=== PATIENT | female | born 1990 | race Caucasian/White ===

== ENCOUNTER 2024-06-12 09:24 | Emergency (ER) | payer OTHER, SELFPAY ==
--- NOTE | 2024-06-12 09:25 | ED.URI ---
HPI - URI/Sore Throat General Chief Complaint: Upper Respiratory Infection Stated Complaint: Cough Time Seen by Provider: 06/12/24 09:25 Source: patient Mode of arrival: ambulatory Limitations: no limitations History of Present Illness HPI Narrative: Patient is a 33 year old female that presents with 2 weeks of cough and congestion. Patient states she is having coughing fits and can't get the cough to stop. States the cough is getting worse and is keeping her up all night. Denies any fever, chills, n/v/d. Has taken Vero but nothing for the cough. Related Data Allergies Allergy/AdvReac Type Severity Reaction Status Date / Time No Known Allergies Allergy Verified 06/12/24 09:26 Review of Systems Review of Systems: All systems reviewed & are unremarkable except as noted in HPI and below Constitutional: Constitutional: Denies chills, Denies fatigue, Denies fever(s), Denies headache(s), Denies malaise and Denies weakness Eyes: Eyes: Denies blurry vision, Denies itchy eyes and Denies loss of vision ENT: Denies otalgia, Denies headache(s), Reports nasal congestion, Denies sinus pain and Denies sore throat Cardiovascular: Cardiovascular: Denies chest pain, Denies irregular heart rhythm and Denies dyspnea Respiratory: Respiratory: Reports cough and Denies dyspnea Gastrointestinal: Gastrointestinal: Denies abdominal pain, Denies diarrhea, Denies nausea and Denies vomiting Musculoskeletal: Musculoskeletal: Denies back pain, Denies myalgias and Denies arthralgias Integumentary/Breasts: Skin/Breast: Denies pruritus and Denies rash Neurologic: Denies headache(s), Denies loss of vision and Denies weakness Psychiatric: Psychiatric: Reports no additional psychiatric complaints Endocrine: Endocrine: Denies fatigue Allergic/Immunologic: Allergic/Immunologic: Denies itchy eyes PMFSH Comments At time of signature, agree with nursing past medical, surgical, social and family history. There is no relevant family history pertinent to the presenting complaint. Exam Const: General: cooperative, healthy appearing, comfortable, no acute distress and well nourished Nutritional Appearance: well nourished Orientation/consciousness: patient oriented x3 Limitations: no limitations HENMT: Head: normal to inspection, normocephalic and atraumatic Ears: hearing grossly normal bilaterally, external ears normal, TM's normal bilaterally, EAC's normal and no periauricular adenopathy Face/Nose/Sinus: Normal external nose present, Abnormal mucous membranes and turbinates present erythematous bilateral and diffuse, normal facial exam, sinuses nontender and face symmetric Face and sinus: normal facial exam, sinuses nontender and face symmetric Mouth: Yes Normal oral and palatal mucosa present, Yes lip normal, Yes tongue normal, Yes Normal salivary glands and ducts present, Yes oropharynx normal and Yes moist mucous membranes Teeth and gingiva: dentition normal Throat: posterior oropharynx normal, tonsils normal and uvula midline Eyes: General: appearance normal, both eyes and all related structures Alignment and Position: alignment normal and position normal Periorbital: periorbital findings normal Eyelids: eyelids normal Pupils: Equal, round and reactive pupils present Neck: Neck: normal visual inspection, full ROM, no lymphadenopathy and supple Chest: Chest palpation & inspection: normal inspection of the chest and normal palpation of entire chest wall Resp: Effort & Inspection: normal respiratory effort, able to speak in complete sentences and Actively coughing actively coughing Auscultation: no crackles, no rales, rhonchi throughout (mild) and no wheezes Cardio: Rate: regular rate Rhythm: regular rhythm Heart sounds: S1 normal heart sound present and S2 normal heart sound present GI: Inspection: normal to inspection Skin: General skin exam: normal color and no rashes or lesions noted Neuro: General: patient oriented x3 and moves all extremities Cranial nerves: Yes Equal, round and reactive pupils present Speech: normal speech Gait exam (Neuro): Normal gait present Extrem: General: normal to inspection, full ROM and no edema Psych: Appearance: grossly normal and well kempt Mental Status: mental status grossly normal Speech and movement: Normal speech and movement present Affect: normal affect Attitude: cooperative Thought process: Normal thought process present Course Course Emergency Course: Discharge instructions reviewed with patient, as well as provided in writing per nursing staff. The instructions also include specific and strict return/GO TO THE ER as well as f/u information. All questions have been answered, and the patient deny any further questions with discharge and discharge plan. Portions of this record may have been created with voice recognition software Level of Care: Express Care Visit Vital Signs Vital signs: Reviewed MDM - URI/Sore Throat MDM Narrative Medical decision making narrative: Pt well hydrated appearing, in no respiratory distress, hemodynamically stable. Recommend supportive care. The patient is stable at time of discharge the clinical impression was discussed and the patient was given the opportunity to ask questions, which were addressed as completely as possible given the information available at present. Anticipatory guidance and return to care precautions were discussed and the importance of primary care follow-up was stressed and encouraged. The patient voiced understanding of the plan, indications to return, and the need for follow-up. Exam findings show no acute concerns or changes Patient is appropriate for outpatient treatment and follow-up. Differential diagnosis considered: Jara virus, strep pharyngitis, allergic rhinitis, upper respiratory tract infection, sinusitis, rhinosinusitis, nasopharyngitis. viral pharyngitis, otitis media, otitis externa, otitis effusion, foreign body, cerumen impaction, viral syndrome, and influenza.? Discharge Plan Discharge Clinical Impression: Acute purulent bronchitis Patient Disposition: Home Condition: Stable Instructions: Acute Bronchitis (ED) Additional Instructions: Take antibiotic as prescribed. Take steroids in the morning with food. Use Tessalon Perles as needed for cough. You have been prescribed Doxycycline today.It may make your skin more sensitive to sunlight than normal. Make sure you wear sunscreen at all times when outside while on the medication. Other symptomatic treatments include: -Alternate Tylenol and Motrin per package directions for fever or pain: Tylenol 650-1000mg by mouth every 4-6 hours. Do not exceed 4000mg in 24 hours. Advil (Ibuprofen) 600 mg by mouth every 6 hours. Do not exceed 2400mg in 24 hours. 8 AM: Tylenol 11 AM: Ibuprofen 2 PM: Tylenol 5 PM: Ibuprofen 8 PM: Tylenol 11 PM: Ibuprofen 2 AM: Tylenol 5 AM: Ibuprofen -Antihistamine medication such as Benadryl at night and Zyrtec/Claritin/Vero during the day can help improve symptoms. -Use Flonase twice a day for 5 days then daily to help reduce the inflammation and dry up your sinuses. -You can also use Sudafed or Mucinex. Be sure to drink plenty of water with these medications at least 8 ounces with every dose and it is important to drink 8 to 10 glasses of water per day. Water is a natural decongestant -Eat and drink things that are easy to swallow, like tea or soup, or popsicles. -Oral rinses such as: Salt water gargles and/or may use topical anesthetic (eg. Chloraseptic spray) or lozenges to relieve dryness or throat pain). -Frequent hand washing or hand security flex officer is one of the best ways to prevent spread of infection. -Using a vaporizer or humidifier at night will also help thin secretions and help with coughing up phlegm. Call your Primary Care Doctor and make a follow-up appointment in 3 days. If your cough worsens, you develop a fever greater than 103, you develop shaking chills, a fast heartbeat, trouble breathing and/or feel you are are breathing much faster than usual, call your Primary Care Doctor or go to the ER. Patient Language: Ecuadorean Prescriptions: New prednisone 20 mg tablet 40 mg PO DAILY 5 Days Qty: 10 0RF doxycycline monohydrate 100 mg tablet 100 mg PO BID 7 Days Qty: 14 0RF benzonatate 100 mg capsule 100 mg PO BID PRN (Reason: cough) Qty: 14 0RF Follow-up/Referrals: Frank,Sharri [Other] - 3 Days Time of Disposition: 09:42
[2024-06-12 09:34] VITALS: BP 117/86; PULSE 95; RESP 17; TEMP 36.8; O2SAT 99
--- OUTSIDE RECORDS SUMMARY | 2024-06-12 16:06 | XMS_ITS ---
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 Considering SCIT., Coughtriggered by dust or when cleaning with 2 episodes of chest tightness. No interval episodes or albuterol use., Angioedema 3-4 times at age 9 or 10. Now reoccurring over the past two months. One interval episode in 03/2024. Two episodes in 2024. Now carries AIE., Rashes to neck, back and arms lasting for several days. Occurring every other month for years. No interval episodes., Concern for allergy to pistachio due to prior blood testing. Reports severe abdominal pain after pistachio ingestion in 2021. Continues avoidance. Skin testing positive with Immunocap showing IgE elevation at 0.12. Medications Medication SIG (Take, Route, Frequency, Duration) Notes Start Date End Date Status Nasal Washes N/A as directed intranasally Active Cetirizine HCl 10 MG 1 tablet Orally Onc e a day for 30 days Active Fluticasone Propionate 50 MCG/ACT 1 spray in each nostril Nasally Twice a day for 30 days Active Mupirocin 2 % 1 application Gps [employer] Data [employer]or ally Twice a day for 5 days Active Fexofenadine HCl 180 MG 1 tablet Orally Once a day for 30 days Active Albuterol Sulfate HFA 108 (90 Base) MCG/ACT 2 puffs as needed Inhalation every 4 hrs for 30 days Active Aleve-D Sinus & Cold 120-220 MG 1 tablet as needed Orally every 12 hrs Active AeroChamber MV - as directed for 30 days Any adult spacer Active Lo-Zumandimine 3-0.02 MG Oral for 84 Days Not-Taking EPINEPHrine 0.3 MG/0.3ML as directed Inj ection as needed for 30 days Active Social History Tobacco Use: Social History Observation Description Date Details (start date - stop date) Never Smoker NA - NA Tobacco Control (Standard) Question Answer Notes Tobacco use: Nonsmoker Problems Problem Type SNOMED Code ICD Code Onset Dates Problem Status W/U Status Risk Notes Problem Allergic rhinitis caused by animal hair and dander ([id number]) Allergic rhinitis due to animal (cat) (dog) hair and dander (J30.81) Active confirmed Vital Signs Blood pressure systolic 131 mm Hg 04/29/19 25 Blood pressure diastolic 85 mm Hg 025 Height 63 in 04/28/2024 Weight 139.6 lbs 04/28/2024 BMI 24.73 kg/m2 04/28/2024 Oximetry 100 % 04/28/2024 Encounters Encounter Location Date Provider Diagnosis [facility] [address] [address] 04/28/2024 Marielle Paez Allergic rhinitis du e to pollen J30.1 ; Allergic rhinitis due to animal (cat) (dog) hair and dander J30.81 ; Other allergic rhinitis J30.89 ; Other chronic allergic conjunctivitis H10.45 ; Chronic rhinitis J31.0 ; Cough, unspecified R05.9 ; Angioneurotic edema, initial encounter T78.3XXA ; Rash and other nonspecific skin eruption R21 ; Anaphylactic reaction due to tree nuts and seeds, initial encounter T78.05XA and Elevated blood-pressure reading, without diagnosis of hypertension R03.0 Assessments Encounter Date Diagnosis (ICD Code) Assessment Notes Treatment Notes Treatment Clinical Notes Section Notes 04/28/2024 Allergic rhinitis due to pollen (ICD-10 - J30.1) Caryl clearly suffers from atopic disease based upon our skin testing and clinical history. Accordingly, we have introduced a new, aggressive medication regimen, discussed nasal washes and allergy-specific avoidance measures. We also discussed adjunctive therapies including subcutaneous, specific allergen immunotherapy as relates to the treatment and prevention of atopic disease. She is currently considering the risks, benefits and alternatives to this care. Risks: bleeding, infection, allergic reaction, anaphylaxis; Benefits: reduced need for medications, improved symptoms, disease modification. Alternatives: watch/wait, change medication regimen, improve allergy avoidance measures. - Recommend against frequent use of Aleve decongestant. - Continue medications as listed above. - Patient is considering SCIT - recommend Zyrtec. Recommend triple premedication if undergoing rapid desensitization during Spring. She is holding off at this time due to insurance. - AIE to be carried at all times - see below. - Follow-up in 3-6 months for E&M 04/28/2024 Allergic rhinitis due to animal (cat) (dog) hair and dander (ICD-10 - J30.81) Follow allergen avoidance, meds and consider SCIT as an adjunctive treatment to current regimen 04/28/2024 Other allergic rhinitis (ICD-10 - J30.89) Follow allergen avoidance, meds and consider SCIT as an adjunctive treatment to current regimen 04/28/2024 Other chronic allergic conjunctivitis (ICD-10 - H10.45) Given ocular signs and symptoms I encouraged allergy avoidance measures and meds as above. If symptoms persist, consider adding additional medications including intraocular antihistamine/mast cell stabilizer, PRN and consider SCIT as an adjunctive measure 04/28/2024 Chronic rhinitis (ICD-10 - J31.0) Last visit, exam concerning for atrophic rhinitis. Today, exam WNL after mupirocin 2% BID x 5 days. -Encouraged Nasal rinses and AYR gel to enhance moisturization of nasal passages. -Recommend holding nasal sprays for any evidence of epistaxis. 04/28/2024 Cough, unspecified (ICD-10 - R05.9) Caryl reports occasional coughing, which she believes to be triggered specifically by cleaning. She also reports coughing attacks at times that cause chest tightness. She reports 2 episodes that caused intense chest tightness as she was coughing so hard, both times she was dust. The last episode was 2 weeks ago. She denies asthma diagnosis, inhaler usage, PNA diagnosis, frequent infections, hospitalization, intubations. She denies OCS use for lower airways. ACT 25 today. No interval cough or MCKENNA use. - Initial spirometry showed supernormal FVC, normal FEV1, FEV%. FVL shows variable inspiratory blunting, otherwise normal. Normal lung age. - Encouraged to use MCKENNA PRN every 4-6 hours for cough. No interval use. - Consider step-up to ICS versus ICS/LABA for MCKENNA use more than 2x per week. - Treat atopy as stated above. - Consider BD challege for persistent or worsening symptoms. 04/28/2024 Angioneurotic edema, initial encounter (ICD-10 - T78.3XXA) Historical angioedema, with upper lip swelling that occurs randomnly. Around age 9 or 10, mom reports upper lip swelling that happened 3-4 times, thought to be related to cinnamon. She now ingests cinnamon without issues. Wong reports one episode while in high-school as well. Approximately 2-3 months ago, symptoms of upper lip swelling started to reoccur at random. Symptoms start with tingling noted to upper lip, then upper lip becomes swollen shortly after. No pictures available. Denies associated hives. She does not treat with anything. Symptoms will resolve within 24 hours. She uses tylenol for pain. Previously using Aleve Cold & Sinus. She admits to 1 glass of wine nightly. Reports 2 episodes in 2024, last one in 03/2024. Notable itching prior to onset of swelling around 1:00pm, resovled by the next AM. - Discussed with Dr. Fry, presumably related to acute uticaria at this time. Can consider triple premedication versus watch and wait versus treating with additional antihistamines if symptoms arise. - Discussed with Crayl, will monitor for reoccurence and take additional Vero if symptoms reoccur. She is not interested in triple medication at this time as symptoms have only occured 2 times in 2024. - Initial laboratory workup notable for positive PRICE 1:40, repeat PRICE was WNL. C1 inhibiotr protein and functional WNL. C4 obtained to rule out HAE, WNL. CRP WNL. Repeat UA WNL. Prior MCHC mildly low, no other abnormalitiies on CBC. - Repeat labs all WNL. - Continue to carry AIE. - Encouraged to take pictures and journal for triggers. Pictures viewed today c/w angioedema. - Recommend avoiding NSAIDS, opioids and alcohol as these can exacerbate symptoms - unsure if she was taking NSAIDs in the setting of swelling. - Educational handout provided to patient at initial visit. - Follow-up in 3-4 months for E&M 04/28/2024 Rash and other nonspecific skin eruption (ICD-10 - R21) Intermittent rashes occuring every other month for the past year. Symptoms will occur to back of neck and down back and arms. Symptoms last for 2-3 days with no skin changes or associated-flaking . She denies associated itching nor burning. She denies dermatology evaluation. Current products consist of All Free and Clear laudry detergent, occasional Free and Clear dryer sheets, Biolage shampoo and conditioner, Norwex rag on for soap, Vanicream lotion. She reports hair dye every 8-9 weeks. No pictures available. No interval episodes. - History is concerning for contact dermatitis vs atopic dermatitis vs other. - Recommend changing products to dye-free, scent-free, paraben free. Suggested Vanicream line for all products in addition to All Free and Clear Laundry detergent. - Discussed journaling for triggers and taking pictures if rash reoccurs. - Consider change to PPD hair dye or avoiding hair dye in the interim. - She is interested in patch testing - wants to wait until weather is cooler. 04/28/2024 Anaphylactic reaction due to tree nuts and seeds, initial encounter (ICD-10 - T78.05XA) She reports prior bloodwork, confirming pistachio allergy. She has ingested almonds and walnuts regularly. She attempted pistachio in past that resulted in severe abdominal pain within 30 minutes, last time was approximately 2 years ago. She has avoided since. She has ingested almonds and walnuts without issue. - SPT at initial visit mildly positive to [place] Nut, Cashew Nut, Pistachio, Hazelnut, and Pecan. ImmunoCaps ordered showing IgE elevations to pistachio (0.12) and cashew (0.12). - Encouraged to avoid all tree nuts (except almond and walnut) at this time. - Directed patient to Food Allergy Research & Education (FARE) website for additional resources at follow-up. - Discussed reading food labels, cross-contaminatio n, and use/indications for Epinephrine. - FAP to be formulated at follow-up. - Patient may need paperwork for her current job due to evidence of [place] allergy, ARC and ongoing angioedema completed. Does not have it with her at this time. Instructed to email paperwork to office. - Continue to carry AIE at all times. 04/28/2024 Elevated blood-pressure reading, without diagnosis of hypertension (ICD-10 - R03.0) BP elevated today without symptoms of urgency or emergency. 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 Accordingly, we have introduced a new, aggressive medication regimen, discussed nasal washes and allergy-specific avoidance measures. We also discussed adjunctive therapies including subcutaneous, specific allergen immunotherapy as relates to the treatment and prevention of atopic disease. She is currently considering the risks, benefits and alternatives to this care. Risks: bleeding, infection, allergic reaction, anaphylaxis; Benefits: reduced need for medications, improved symptoms, disease modification. Alternatives: watch/wait, change medication regimen, improve allergy avoidance measures. - Recommend against frequent use of Aleve decongestant. - Continue medications as listed above. - Patient is considering SCIT - recommend Zyrtec. Recommend triple premedication if undergoing rapid desensitization during Spring. She is holding off at this time due to insurance. - AIE to be carried at all times - see below. - Follow-up in 3-6 months for E&M Allergic rhinitis due to ani mal (cat) (dog) hair and dander Follow allergen avoidance, meds and consider SCIT as an adjunctive treatment to current regimen Other allergic rhinitis Follow allergen avoidance, meds and consider SCIT as an adjunctive treatment to current regimen Other chronic allergic conjunctivitis Gi shimon ocular signs and symptoms I encouraged allergy avoidance measures and meds as above. If symptoms persist, consider adding additional medications including intraocular antihistamine/mast cell stabilizer, PRN and consider SCIT as an adjunctive measure Chronic rhinitis Last visit, exam concerning for atrophic rhinitis. Today, exam WNL after mupirocin 2% BID x 5 days. -Encouraged Nasal rinses and AYR gel to enhance moisturization of nasal passages. -Recommend holding nasal sprays for any evidence of epistaxis. Cough, unspecified Caryl reports occasional coughing, which she believes to be triggered specifically by cleaning. She also reports coughing attacks at times that cause chest tightness. She reports 2 episodes that caused intense chest tightness as she was coughing so hard, both times she was dust. The last episode was 2 weeks ago. She denies asthma diagnosis, inhaler usage, PNA diagnosis, frequent infections, hospitalization, intubations. She denies OCS use for lower airways. ACT 25 today. No interval cough or MCKENNA use. - Initial spirometry showed supernormal FVC, normal FEV1, FEV%. FVL shows variable inspiratory blunting, otherwise normal. Normal lung age. - Encouraged to use MCKENNA PRN every 4-6 hours for cough. No interval use. - Consider step-up to ICS versus ICS/LABA for MCKENNA use more than 2x per week. - Treat atopy as stated above. - Consider BD challege for persistent or worsening symptoms. Angioneurotic edema, initial encounter Historical angioedema, with upper lip swelling that occurs randomnly. Around age 9 or 10, mom reports upper lip swelling that happened 3-4 times, thought to be related to cinnamon. She now ingests cinnamon without issues. Wong reports one episode while in high-school as well. Approximately 2-3 months ago, symptoms of upper lip swelling started to reoccur at random. Symptoms start with tingling noted to upper lip, then upper lip becomes swollen shortly after. No pictures available. Denies associated hives. She does not treat with anything. Symptoms will resolve within 24 hours. She uses tylenol for pain. Previously using Aleve Cold & Sinus. She admits to 1 glass of wine nightly. Reports 2 episodes in 2024, last one in 03/2024. Notable itching prior to onset of swelling around 1:00pm, resovled by the next AM. - Discussed with Dr. Fry, presumably related to acute uticaria at this time. Can consider triple premedication versus watch and wait versus treating with additional antihistamines if symptoms arise. - Discussed with Caryl, will monitor for reoccurence and take additional Vero if symptoms reoccur. She is not interested in triple medication at this time as symptoms have only occured 2 times in 2024. - Initial laboratory workup notable for positive PRICE 1:40, repeat PRICE was WNL. C1 inhibiotr protein and functional WNL. C4 obtained to rule out HAE, WNL. CRP WNL. Repeat UA WNL. Prior MCHC mildly low, no other abnormalitiies on CBC. - Repeat labs all WNL. - Continue to carry AIE. - Encouraged to take pictures and journal for triggers. Pictures viewed today c/w angioedema. - Recommend avoiding NSAIDS, opioids and alcohol as these can exacerbate symptoms - unsure if she was taking NSAIDs in the setting of swelling. - Educational handout provided to patient at initial visit. - Follow-up in 3-4 months for E&M Rash and other nonspecific skin eruption Intermittent rashes occuring every other month for the past year. Symptoms will occur to back of neck and down back and arms. Symptoms last for 2-3 days with no skin changes or associated-flaking. She denies associated itching nor burning. She denies dermatology evaluation. Current products consist of All Free and Clear laudry detergent, occasional Free and Clear dryer sheets, Biolage shampoo and conditioner, Norwex rag on for soap, Vanicream lotion. She reports hair dye every 8-9 weeks. No pictures available. No interval episodes. - History is concerning for contact dermatitis vs atopic dermatitis vs other. - Recommend changing products to dye-free, scent-free, paraben free. Suggested Vanicream line for all products in addition to All Free and Clear Laundry detergent. - Discussed journaling for triggers and taking pictures if rash reoccurs. - Consider change to PPD hair dye or avoiding hair dye in the interim. - She is interested in patch testing - wants to wait until weather is cooler. Anaphylactic reaction due to tree nuts and seeds, initial encounter She reports prior bloodwork, confirming pistachio allergy. She has ingested almonds and walnuts regularly. She attempted pistachio in past that resulted in severe abdominal pain within 30 minutes, last time was approximately 2 years ago. She has avoided since. She has ingested almonds and walnuts without issue. - SPT at initial visit mildly positive to [place] Nut, Cashew Nut, Pistachio, Hazelnut, and Pecan. ImmunoCaps ordered showing IgE elevations to pistachio (0.12) and cashew (0.12). - Encouraged to avoid all tree nuts (except almond and walnut) at this time. - Directed patient to Food Allergy Research & Education (FARE) website for additional resources at follow-up. - Discussed reading food labels, cross-contamination, and use/indications for Epinephrine. - FAP to be formulated at follow-up. - Patient may need paperwork for her current job due to evidence of [place] allergy, ARC and ongoing angioedema completed. Does not have it with her at this time. Instructed to email paperwork to office. - Continue to carry AIE at all times. Elevated blood-pressure read ing, without diagnosis of hypertension BP elevated today without symptoms of urgency or emergency. Continue serial checks and follow-up with PCP Next Appt Details Follow Up: 3 Months, Reason: Evaluation and Management Progress Notes * TISHA IsidraOB:1990 (33 yo F)Acc No.[id number]:04/28/2024 Progress Notes Patient: Caryl SULLIVAN Provider: SANDRA Das :1990 A ge:33 Y S ex:Female Date:04/28/2024 Address:[address], [place], [id number] Subjective: * Chief Complaints: * A RC - Using Zyrtec nightly with associated drowsiness and Flonase 2x week. Considering SCIT.Cough triggered by dust or when cleaning with 2 episodes of chest tightness. No interval episodes or albuterol use.Angioedema 3-4 times at age 9 or 10. Now reoccurring over the past two months. One interval episode in 03/2024. Two episodes in 2024. Now carries AIE.Rashes to neck, back and arms lasting for several days. Occurring every other month for years. No interval episodes.Concern for allergy to pistachio due to prior blood testing. Reports severe abdominal pain after pistachio ingestion in 2021. Continues avoidance. Skin testing positive with Immunocap showing IgE elevation at 0.12. * HPI: * Introduction: I had the pleasure of seeing Ariadna Cuello, a 33 year-old WF, with a past medical history of ARC, IBS here today for interval evaluation and management. She is alone for today's visit. Caryl reports lifelong seasonal allergies lifelong. Symptoms consist of itchy/watery eyes, rhinorrhea, nasal congestion and sneezing.Descriptors of her upper airways symptoms are outlined below. Symptoms were previously worse in Spring, now reports year- round symptoms. Prior treatment consisted of Aleve Cold and Sinus 3-4 times per week. She has attempted Vero, Zyrtec, Claritin, Flonase (which does help occasionally). Aeroallergen skin testing was completed at first visit, and was positive to multiple seasonal and perennial allergens. She was started on Zyrtec, but reported drowsiness so switched to Vero. Last visit, reported b loody drainage with nose blwoing. Concerns for atrophic rhintiis, treated with muprocin with subjective improvement. Also started nasal washes with improvement in congestion. She reports prior bloodwork confirming pistachio allergy. She has ingested almonds and walnuts regularly. She attempted pistachio in past that resulted in severe abdominal pain within 30 minutes, last time was approximately 2 years ago. Skin testing at initial visit positive to several tree nuts with ImmunoCaps showing IgE elevations to pistachio (0.12) and cashew (0.12). She continues avoidance and carries AIE. Caryl reported occasional coughing, which she believes to be triggered specifically by cleaning. She also reports coughing attacks at times that cause chest tightness. She reports 2 episodes that caused intense chest tightness as she was coughing so hard, both times she was dust. The last episode was 2 weeks ago.She denies asthma diagnosis, inhaler usage, PNA diagnosis, frequent infections, hospitalization, intubations. She denies OCS use for lower airways. She was given albuterol at initial visit with no interval episode of cough or MCKENNA use. She reports intermittent rashes that occur every other month for the past year. Symptoms will occur to back of neck and down back and arms. Symptoms last for 2- 3 days with no skin changes or associated-flaking. She denies dermatology evaluation. Current products consist of All Free and Clear laudry detergent, occasional Free and Clear dryer sheets, Biolage shampoo and conditioner, Norwex rag on for soap, Vanicream lotion. She reports hair dye every 8-9 weeks. She reports interval rashes to face and is intersetd in patch testing when weather is cooler. Caryl reports historical angioedema, with upper lip swelling that occurs randomnly. Around age 9 or 10, mom reports upper lip swelling that happened 3-4 times, thought to be related to cinnamon. She now ingests cinnamon without issues. Wong reports one episode while in high-school as well. Approximately 2-3 months ago, symptoms of upper lip swelling started to reoccur at random.Symptoms start with tingling noted to upper lip, then upper lip becomes swollen shortly after.No pictures available. Denies associated hives. She does not treat with anything. Symptoms will resolve within 24 hours. She uses tylenol for pain. Previously using Aleve-D 4 times, but has since decreased use. S he drinks 1 glass of wine nightly. Last visit, reported episode of burning, but no associated swelling. Today, reports 2 interval episodes in 2024, last in 03/2024. First noticed itching sensation to lower lip, with visible swelling within 1 hour. Did not take any additional medication. She is unsure if NSAIDs were in system at time of swelling. Swelling resolved by next AM. Carries AIE at all times. She denies a history of physician-diagnosed allergic rhinitis, recurrent sinusitis or otitis media, recurrent pneumonia, asthma/RAD, eczema, food allergies, urticaria/angioedema, medication allergies, contact dermatitis, latex allergy, eosinophilic esophagitis or stinging insect hypersensitivity. Today, she reports no fevers, chills, night sweats or other constitutional symptoms. * ROS: A LLERGY: runny nose Y es. s cratchy throat Y es. i tchy eyes Y es. s inus congestion Y es. P ositive p er the HPI and history, otherwise unremarkable. S PECIAL SENSES: Positve for n one. c ataracts N o. g laucoma?No. l oss of hearing N o. i tching in ears Y es. r inging in ears N o.?loss of balance N o. l oss of smell N o. d ry eyes Y es. e xcessive tearing N o. i tching eyes Y es. l oss of taste N o. c onjunctivitis N o.?ear infections N o. C ONSTITUTIONAL: weight gain N o. l oss of appetite N o. f ever?No. w eakness N o. w eight loss N o. f atigue Y es. n ight sweats?No. P ositive for n one. E NT: cold N o. c ough Y es. e pistaxis N o. h earing loss N o. c hange in voice N o. s ore throat N o. r inging in ears?No. s inus pain N o. P ositive p er the HPI and history, otherwise unremarkable. R ESPIRATORY: shortness of breath N o. c hest pain Y es. c hest congestion Y es. c ough Y es. P ositive p er the HPI and history, otherwise unremakable. O PHTHALMOLOGY: diminished vision Y es. e ye irritation Y es. d rainage from eyes N o. b lurring of vision N o. s easonal eye sx Y es. P ositive for p er the HPI and history, otherwise unremarkable. i tching Y es. d ischarge N o. w atering N o. s welling of the eyelids N o. r edness Y es. ? E NDOCRINOLOGY: fatigue Y es. p olydipsia N o. p olyuria N o. w eight loss N o. s leep disturbance N o. c old intolerance N o. h eat intolerance N o. d iabetes N o. P ositive for n one. C ARDIOLOGY: chest pain Y es. p alpitations N o. l eg edema?No. d izziness Y es. s hortness of breath N o. P ositive for n one.? G ASTROENTEROLOGY: dysphagia N o. a bdominal pain Y es. n ausea?Yes. v omiting N o. c onstipation N o. d iarrhea Y es. b lood in stool Y es. h emorrhoids N o. P ositive for n one. U ROLOGY: difficulty urinating N o. b lood in urine N o. f requent urination N o. u rinary incontinence N o. r ecurrent UTI N o. P ositive for n one. D ERMATOLOGY: rash Y es. m ole N o. l umps N o. d ry or sensitive skin Y es. h khadar (urticaria) N o. a cne N o. s kin cancer N o. P ositive for p er the HPI and history, otherwise unremakable. N EUROLOGY: headache Y es. t ingling numbness N o. s eizures N o. i nsomnia N o. m marilu loss N o. d izziness Y es. g ait abnormality N o. P ositive for n one. H EMATOLOGY/LYMPH: Positive for n one. M USCULOSKELETAL: leg cramps Y es. c arpal tunnel Y es. P ositive for n one. P SYCHOLOGY: high stress level N o. d epression N o. s leep disturbances N o. s uicidal ideation N o. e ating disorder N o. m ental or physical abuse N o. a nxiety N o. P ositive for n one. F EMALE REPRODUCTIVE: heavy periods N o. h ot flashes N o. a bnormal vaginal discharge N o. s exually active Y es. i nfertility N o. f requent yeat infections N o. p elvic pain N o. b reast pain N o. n ipple discharge No. A re you ? N o. A re you planning on a future pregancy? N o. ? A ll other review of systems per the HPI and history, otherwise unremarkable. * Medical History: * Surgical History: C ubital tunnel 11/21/2023 * Hospitalization/Major Diagno stic Procedure: D enies Past Hospitalization * Family History: F ather: Yes. M other: Yes. P aternal Grand Father: Yes. P aternal Grand Mother: Yes. M aternal Grand Father: Yes. M aternal Grand Mother: Yes. S iblings: Yes. Ariadna go: Yes. dad- seizures. * Social History: M arital Status What is your marital status? m arried A lcohol Screening Do you ever drink alcoholic beverages? Y es Frequency? W eekly S moking Are you a : n ever smoker R ecreational drug use Have you ever used recreational drugs? N o D etails on consumption of certain products? Do you regularly consume products with aspartame; Equal or NutraSweet? N o Do you regularly consume products with artificial coloring??Yes E xercise What kind(s) of exercise do you perform regularly? w alking,age-appropriate participation in physical activites How often do you perform this exercise? d aily A re any of the following personal care products containing fragrance, dye or preservatives used regularly? Shampoo: Y es Conditioner: Y es Soap: N o Laundry Detergent: N o Deodorant: Y es Perfume, cologne, after shave: Y es Hair coloring dyes or rinses: Y es O ccupation Have you had any job with high exposure to fumes, chemicals, dust or other noxious substances? N o Are you currently a student? N o E nvironmental History Living environment: p rivate home,with pets Where is the home located? [place] Age of home: 5 How long have you lived there? 0 -1 years How many people live in the home? 4 H ome description Basement: Y es Any water damage in basement? N o Smokers in the home? N o Smokers outside the home? N o Air Conditioning? Y es Central Air? Y es Forced air heating? Y es Gas or electric? e lectric Fireplace? Y es Used how often? w inter months only Wood burning stove? N o Do you vacuum the home? Y es Air purification systems? Y es Is it a HEPA (high-efficiency particulate air filter)? Y es Pillow and mattress dust-proof encasings? N o Do you use a humidifier? N o Do you own any pets? Y es What kind(s)? (click all that apply) d og Where do your pets sleep? g arage Fabric softeners used? N o Plants in the home? N o Is there carpeting in your bedroom? N o Do you have [id number] carpeting? N o What is the age of your mattress (years)? 3 What material(s) are used to manufacture your bedding and pillow? o ther What is the age of your pillow (years)? 1 What material are your bedding items made of? n atural fiber (e.g. cotton) Do you sleep with quilts or blankets or a duvet? Y es What material? n atural fiber (e.g. cotton) How many dogs? 1 T obacco Control (Standard) Tobacco use: N onsmoker * Medications: T akingAlbuterol Sulfate HFA 108 (90 Base) MCG/ACT Aerosol Solution 2 puffs as needed Inhalation every 4 hrs AeroChamber MV - Miscellaneous as directed Any adult spacerEPINEPHrine 0.3 MG/0.3ML Solution Auto-injector as directed Injection as needed Cetirizine HCl 10 MG Tablet 1 tablet Orally Once a day Fluticasone Propionate 50 MCG/ACT Suspension 1 spray in each nostril Nasally Twice a day Aleve-D Sinus & Cold 120-220 MG Tablet Extended Release 12 Hour 1 tablet as needed Orally every 12 hrs Mupirocin 2 % Ointment 1 application Externally Twice a day Nasal Washes N/A 1 quart of sterilized tap water or distilled water, 1 tsp NaCl, 1 pinch of baking soda as directed intranasally Taking Albuterol Sulfate HFA 108 (90 Base) MCG/ACT Aerosol Solution 2 puffs as needed Inhalation every 4 hrs Taking AeroChamber MV - Miscellaneous as directed Any adult spacerTaking EPINEPHrine 0.3 MG/0.3ML Solution Auto-injector as directed Injection as needed Taking Cetirizine HCl 10 MG Tablet 1 tablet Orally Once a day Taking Fluticasone Propionate 50 MCG/ACT Suspension 1 spray in each nostril Nasally Twice a day Taking Aleve-D Sinus & Cold 120-220 MG Tablet Extended Release 12 Hour 1 tablet as needed Orally every 12 hrs Taking Mupirocin 2 % Ointment 1 application Externally Twice a day Taking Nasal Washes N/A 1 quart of sterilized tap water or distilled water, 1 tsp NaCl, 1 pinch of baking soda as directed intranasally Not-Taking/PRNLo-Zumandimine 3-0.02 MG Tablet Oral Fexofenadine HCl 180 MG Tablet 1 tablet Orally Once a day Medication List reviewed and reconciled with the patientNot-Taking/PRN Lo-Zumandimine 3-0.02 MG Tablet Oral Not- Taking/PRN Fexofenadine HCl 180 MG Tablet 1 tablet Orally Once a day Medication List reviewed and reconciled with the patient * Allergies: N .K.D.A.no[Allergies Verified] Objective: * Vitals: B P:131/85mm Hg, HR:82/min, Pulse Oximetry:100%, ACT:25, Ht: 63 in, Wt: 139.6 lbs, BMI:24.73Index. * Examination: G eneral examination: General appearance: p leasant, well-developed, well-nourished, in no apparent distress, speaking in full sentences. HEENT: c onjunctiva are normal bilaterally, TMs without evidence of acute infection, turbinates 2+ swollen and pale inferiorly bilaterally, clear rhinorrhea is present, no polyps noted, no septal perforation, posterior oropharynx is clear without exudates, erythema on pharyngeal wall, no exudates, no tongue swelling, and uvula is midline. Oral cavity: n ormal, no lesions. Breasts : n ot performed. Heart: R RR, S1-S2, no murmurs, no rubs, no gallops. Lungs: c lear to auscultation in all lung westfall, no wheezes, no crackles, no rhonchi. Neurologic exam: u nremarkable. Skin: n ormal, no visible rash, dermatographism, urticaria, angioedema. Back: n ormal. Extremities: n ormal ROM, no clubbing, no cyanosis, no edema. Genitalia: n ot performed. Assessment: * Assessment: 1. A llergic rhinitis due to pollen - J30.1 (Primary) 2 . A llergic rhinitis due to animal (cat) (dog) hair and dander - J30.81 3 . O ther allergic rhinitis - J30.89 4 . O ther chronic allergic conjunctivitis - H10.45 5 . C hronic rhinitis - J31.0 6 . C ough, unspecified - R05.9 ?7. A ngioneurotic edema, initial encounter - T78.3XXA 8 . R gabriela and other nonspecific skin eruption - R21 9 . A naphylactic reaction due to tree nuts and seeds, initial encounter - T78.05XA 1 0. E levated blood-pressure reading, without diagnosis of hypertension - R03.0 Plan: * Treatment: 2. A llergic rhinitis due to animal (cat) (dog) hair and dander Notes: Follow allergen avoidance, meds and consider SCIT as an adjunctive treatment to current regimen 3. O ther allergic rhinitis Notes: Follow allergen avoidance, meds and consider SCIT as an adjunctive treatment to current regimen 4. O ther chronic allergic conjunctivitis Notes: Given ocular signs and symptoms I encouraged allergy avoidance measures and meds as above. If symptoms persist, consider adding additional medications including intraocular antihistamine/mast cell stabilizer, PRN and consider SCIT as an adjunctive measure 5. C hronic rhinitis Hold Mupirocin Ointment, 2 %, 1 application, Externally, Twice a day, 5 days, 22 Gram, Refills 0.? Notes: Last visit, exam concerning for atrophic rhinitis. Today, exam WNL after mupirocin 2% BID x 5 days. -Encouraged Nasal rinses and AYR gel to enhance moisturization of nasal passages. -Recommend holding nasal sprays for any evidence of epistaxis. 6. C ough, unspecified Continue Albuterol Sulfate HFA Aerosol Solution, 108 (90 Base) MCG/ACT, 2 puffs as needed, Inhalation, every 4 hrs, 30 days, 1, Refills 0; C ontinue AeroChamber MV Miscellaneous, -, as directed Any adult spacer, 30 days, 1, Refills 11. Notes: Caryl reports occasional coughing, which she believes to be triggered specifically by cleaning. She also reports coughing attacks at times that cause chest tightness. She reports 2 episodes that caused intense chest tightness as she was coughing so hard, both times she was dust. The last episode was 2 weeks ago. She denies asthma diagnosis, inhaler usage, PNA diagnosis, frequent infections, hospitalization, intubations. She denies OCS use for lower airways. ACT 25 today. No interval cough or MCKENNA use. - Initial spirometry showed supernormal FVC, normal FEV1, FEV%. FVL shows variable inspiratory blunting, otherwise normal. Normal lung age. - Encouraged to use MCKENNA PRN every 4-6 hours for cough. No interval use. - Consider step-up to ICS versus ICS/LABA for MCKENNA use more than 2x per week. - Treat atopy as stated above. - Consider BD challege for persistent or worsening symptoms. 7. A ngioneurotic edema, initial encounter Continue EPINEPHrine Solution Auto-injector, 0.3 MG/0.3ML, as directed, Injection, as needed, 30 days, 1, Refills 0. Notes: Historical angioedema, with upper lip swelling that occurs randomnly. Around age 9 or 10, mom reports upper lip swelling that happened 3-4 times, thought to be related to cinnamon. She now ingests cinnamon without issues. Wong reports one episode while in high-school as well. Approximately 2-3 months ago, symptoms of upper lip swelling started to reoccur at random. Symptoms start with tingling noted to upper lip, then upper lip becomes swollen shortly after. No pictures available. Denies associated hives. She does not treat with anything. Symptoms will resolve within 24 hours. She uses tylenol for pain. Previously using Aleve Cold & Sinus. She admits to 1 glass of wine nightly. Reports 2 episodes in 2024, last one in 03/2024. Notable itching prior to onset of swelling around 1:00pm, resovled by the next AM. - Discussed with Dr. Fry, presumably related to acute uticaria at this time. Can consider triple premedication versus watch and wait versus treating with additional antihistamines if symptoms arise. - Discussed with Caryl, will monitor for reoccurence and take additional Vero if symptoms reoccur. She is not interested in triple medication at this time as symptoms have only occured 2 times in 2024. - Initial laboratory workup notable for positive PRICE 1:40, repeat PRICE was WNL. C1 inhibiotr protein and functional WNL. C4 obtained to rule out HAE, WNL. CRP WNL. Repeat UA WNL. Prior MCHC mildly low, no other abnormalitiies on CBC. - Repeat labs all WNL. - Continue to carry AIE. - Encouraged to take pictures and journal for triggers. Pictures viewed today c/w angioedema. - Recommend avoiding NSAIDS, opioids and alcohol as these can exacerbate symptoms - unsure if she was taking NSAIDs in the setting of swelling. - Educational handout provided to patient at initial visit. - Follow-up in 3-4 months for E&M 8. R gabriela and other nonspecific skin eruption Notes: Intermittent rashes occuring every other month for the past year. Symptoms will occur to back of neck and down back and arms. Symptoms last for 2-3 days with no skin changes or associated-flaking. She denies associated itching nor burning. She denies dermatology evaluation. Current products consist of All Free and Clear laudry detergent, occasional Free and Clear dryer sheets, Biolage shampoo and conditioner, Norwex rag on for soap, Vanicream lotion. She reports hair dye every 8-9 weeks. No pictures available. No interval episodes. - Historyis concerning for contact dermatitis vs atopic dermatitis vs other. - Recommend changing products to dye-free,scent-free, paraben free. Suggested Vanicream line for all products in additionto All Free and Clear Laundry detergent. - Discussed journaling for triggers and taking pictures if rash reoccurs. - Consider change to PPD hair dye or avoiding hair dye in the interim. - She is interested in patch testing - wants to wait until weather is cooler. 9. A naphylactic reaction due to tree nuts and seeds, initial encounter Notes: She reports prior bloodwork, confirming pistachio allergy. She has ingested almonds and walnuts regularly. She attempted pistachio in past that resulted in severe abdominal pain within 30 minutes, last time was approximately 2 years ago. She has avoided since. She has ingested almonds and walnuts without issue. - SPT at initial visit mildly positive to [place] Nut, Cashew Nut, Pistachio, Hazelnut, and Pecan. ImmunoCaps ordered showing IgE elevations to pistachio (0.12) and cashew (0.12). - Encouraged to avoid all tree nuts (except almond and walnut) at this time. - Directed patient to Food Allergy Research &Education (FARE) website for additional resources at follow-up. - Discussed reading foodlabels, cross-contamination, and use/indications for Epinephrine. - FAP to be formulated at follow-up. - Patient may need paperwork for her current job due to evidence of [place] allergy, ARC and ongoing angioedema completed. Does not have it with her at this time. Instructed to email paperwork to office. - Continue to carry AIE at all times. 10. E levated blood-pressure reading, without diagnosis of hypertension Notes: BP elevated today without symptoms of urgency or emergency. Continue serial checks and follow-up with PCP * Procedure Codes: 9 6160 PT-FOCUSED HLTH RISK [id number] DOC MEDS VERIFIED W/PT OR [id number] Marielle Paez - Incident-to * Preventive Medicine: Counseling: D iet C ontinue food avoidance: tree nuts (except almond and walnut). E xercise C ontinue activity as usual, Consider MCKENNA use PRN, prior to exercise as per the asthma action plan. M edication instruction: W atch for side effects of prescribed medications, Nasal steroid/antihistamine instruction: avoid septum, Injectable epinephrine education and instruction w/ discussion of signs and symptoms of anaphylaxis and reasons to seek urgent or emergent care, Use prescribed inhaler(s) with spacer. If taking a inhaled corticorsteroid rinse out mouth after use and brush teeth. Oral hygiene reviewed at length., Use 2 puffs of MCKENNA with spacer prior to exercise and environmental exposures known to cause wheezing. E ducation: G ENERAL EDUCATION: Our staff spent an additional 30 minutes in direct contact with the patient educating them on their current diagnoses and proper treatment and prevention of symptoms and the proper use of medications, Avoid opioid-containing analgesics, Avoid excessive alcohol use, Avoid NSAIDs (non-steroidal anti-inflammatories) - list provided, SKIN CARE EDUCATION:, Skin care regimen reviewed with patient, Avoid fragrances, dyes, preservatives in personal care products, Patch testing education was printed and reviewed with the patient. E ducation 2: A RC EDUCATION: Our staff discussed the appropriate allergen avoidance measures and medication utilization including upper airway hygiene with daily nasal washes given the patient's clinical status and diagnoses. SCIT EDUCATION: Discussed allergy immunotherapy including the relative risks, benefits and alternatives to this treatment as an adjunctive measure to current therapy, Allergy Immunotherapy: Risks: bleeding, infection, allergic reaction, anaphylaxis = severe allergic reaction that can cause ; Benefits: reduced need for medications, improved symptoms, disease modification. Alternatives: watch/wait, change medication regimen, improve allergy avoidance measures, Our staff discussed the warning signs of anaphylaxis and the indications to use self-injectable epinephrine and seek urgent or emergent care, FOOD ALLERGY EDUCATION:, Our staff discussed the warning signs of anaphylaxis and the indications to use self-injectable epinephrine and seek urgent or emergent care, Injectable epinephrine education and instruction w/ discussion of signs and symptoms of anaphylaxis and reasons to seek urgent or emergent care, Able to return demonstration of self-injectable epinephrine. P atient education material sent to portal? Y es B P Management: PRE-HYPERTENSIVE FOLLOW-UP PLAN: F ollow-up 1 month REFERRAL TO ALTERNATIVE / PRIMARY CARE PROVIDER: Lisa beasley to general practitioner * Follow Up: 3 Months (Reason: Evaluation and Management) * Billing Information: * Visit Code: 21400 Office Visit, Est Pt., Level 4. Modifiers: 25 * Procedure Codes: 61127 PT-FOCUSED HLTH RISK ASSMT. G8427 DOC MEDS VERIFIED W/[place]. [address] Marielle Paez - Incident-to. * Sign off status: Completed true * Provider: SANDRA Das Date: 0 04/28/2024 Generated for Caterina cardona/Allan/Luisitting on: 0 06/12/2024 04:06 PM CDT History and Physical Notes * HPI (History of Present Illness) Category Sub-Category Detail Notes Category Not es *Introduction I had the pleasure o f seeing Caryl Cuello, a 33 year-old WF, with a past medical history of ARC, IBS here today for interval evaluation and management. She is alone for today's visit. Caryl reports lifelong seasonal allergies lifelong. Symptoms consist of itchy/watery eyes, rhinorrhea, nasal congestion and sneezing.Descriptors of her upper airways symptoms are outlined below. Symptoms were previously worse in Spring, now reports year-round symptoms. Prior treatment consisted of Aleve Cold and Sinus 3-4 times per week. She has attempted Vero, Zyrtec, Claritin, Flonase (which does help occasionally). Aeroallergen skin testing was completed at first visit, and was positive to multiple seasonal and perennial allergens. She was started on Zyrtec, but reported drowsiness so switched to Vero. Last visit, reported bloody drainage with nose blwoing. Concerns for atrophic rhintiis, treated with muprocin with subjective improvement. Also started nasal washes with improvement in congestion. She reports prior bloodwork confirming pistachio allergy. She has ingested almonds and walnuts regularly. She attempted pistachio in past that resulted in severe abdominal pain within 30 minutes, last time was approximately 2 years ago. Skin testing at initial visit positive to several tree nuts with ImmunoCaps showing IgE elevations to pistachio (0.12) and cashew (0.12). She continues avoidance and carries AIE. Caryl reported occasional coughing, which she believes to be triggered specifically by cleaning. She also reports coughing attacks at times that cause chest tightness. She reports 2 episodes that caused intense chest tightness as she was coughing so hard, both times she was dust. The last episode was 2 weeks ago. She denies asthma diagnosis, inhaler usage, PNA diagnosis, frequent infections, hospitalization, intubations. She denies OCS use for lower airways. She was given albuterol at initial visit with no interval episode of cough or MCKENNA use. She reports intermittent rashes that occur every other month for the past year. Symptoms will occur to back of neck and down back and arms. Symptoms last for 2-3 days with no skin changes or associated-flaking. She denies dermatology evaluation. Current products consist of All Free and Clear laudry detergent, occasional Free and Clear dryer sheets, Biolage shampoo and conditioner, Norwex rag on for soap, Vanicream lotion. She reports hair dye every 8-9 weeks. She reports interval rashes to face and is intersetd in patch testing when weather is cooler. Caryl reports historical angioedema, with upper lip swelling that occurs randomnly. Around age 9 or 10, mom reports upper lip swelling that happened 3-4 times, thought to be related to cinnamon. She now ingests cinnamon without issues. Wong reports one episode while in high-school as well. Approximately 2-3 months ago, symptoms of upper lip swelling started to reoccur at random. Symptoms start with tingling noted to upper lip, then upper lip becomes swollen shortly after. No pictures available. Denies associated hives. She does not treat with anything. Symptoms will resolve within 24 hours. She uses tylenol for pain. Previously using Aleve-D 4 times, but has since decreased use. She drinks 1 glass of wine nightly. Last visit, reported episode of burning, but no associated swelling. Today, reports 2 interval episodes in 2024, last in 03/2024. First noticed itching sensation to lower lip, with visible swelling within 1 hour. Did not take any additional medication. She is unsure if NSAIDs were in system at time of swelling. Swelling resolved by next AM. Carries AIE at all times. She denies a history of physician-diagnosed allergic rhinitis, recurrent sinusitis or otitis media, recurrent pneumonia, asthma/RAD, eczema, food allergies, urticaria/angioedema, medication allergies, contact dermatitis, latex allergy, eosinophilic esophagitis or stinging insect hypersensitivity. Today, she reports no fevers, chills, night sweats or other constitutional symptoms Examination Category Sub-Category Detail Notes Category Not es General examination HEENT: conjunctiva are normal bilaterally, TMs without evidence of acute infection, turbinates 2+ swollen and pale inferiorly bilaterally, clear rhinorrhea is present, no polyps noted, no septal perforation, posterior oropharynx is clear without exudates, erythema on pharyngeal wall, no exudates, no tongue swelling, and uvula is midline Heart: RRR, S1-S2, no murmu rs, no rubs, no gallops Lungs: clear to auscultatio n in all lung westfall, no wheezes, no crackles, no rhonchi Extremities: normal ROM, no clubb ing, no cyanosis, no edema General appearance: pleasant, well-devel oped, well-nourished, in no apparent distress, speaking in full sentences Skin: normal, no visible r gabriela, dermatographism, urticaria, angioedema Neurologic exam: unremarkable Oral cavity: normal, no lesions Breasts : not performed Back: normal Genitalia: not performed
--- OUTSIDE RECORDS SUMMARY | 2024-06-12 16:06 | XMS_ITS | Clinical Summary ---
Author Organization [facility] Address [address] [place] [address] Care Team Providers Care Instrument Technician Apprentice Name Role Phone Shari Mariedemetria Gonzalez [facility] Primary Care Provider + Allergies No known active allergies Medications LO-ZUMANDIMINE 3-0.02 MG tablet Take 1 tablet by mouth daily. 04/22/2022 Active azithromycin (ZITHROMAX) 250 MG tabletIndicatio ns:Sore throat Take 2 tablets by mouth on day one then 1 daily for four days. 6 tablet 03/22/2024 Active Active Problems Problem Noted Date Diagnosed Date Cubital tunnel syndrome on left 10/03/2023 Resolved Problems Problem Noted Date Diagnosed Date Resolved Date Known health problems: none 12/13/2022 12/16/2022 COVID 08/03/2021 11/30/2022 ([facility]) 07/11/2020 12/01/19 23 Encounters Date Type Department Care Team Description 03/22/2024 9:00 AM LOSS PREVENTION INVESTIGATOR Office Visit [facility] Family [facility] Internal Medicine [address] [address] Shilpi Acuna PA Sore Throat (S/s x last night) 03/22/2024 Travel from Last 3 Months Immunizations Immunization Administration Dates Next Due Fluzone 6 Months+ Quad (0.5 mL Prefilled Syringe ) 12/25/2018 Influenza Adult (Generic) 02/09/2018 Tdap (Generic) 06/03/2020,06/09/2018 Family History Medical History Relation Comments Asthma Daughter Seizures Father Cancer Maternal Grandfather Colon Cancer Maternal Grandfather leukemia Maternal Grandfather non-hodgkins lymphoma Maternal Grandfather Cancer Maternal Grandmother Diabetes Paternal Grandfather Stroke Paternal Grandfather Relation Status Comments Daughter Father Alive Maternal Grandfather Alive Maternal Grandmother Alive Mother Alive Paternal Grandfather Paternal Grandmother Alive Sister Alive Social History Tobacco Use Types Packs/Day Years Used Date Smoking Tobacco: Never Smokeless Tobacco: Never Tobacco Cessation:Counseling Given: No Alcohol Use Standard Drinks/Week Comments Yes 6.7 (1 standard drink = 0.6 oz p ure alcohol) occasionally. PHQ-2 Answer Date Recorded Patient Health Questionnaire-2 Score 0 03/22/2024 Comments No Sex and Gender Information Value Date Recorded Sex Assigned at Female 03/22/2024 8:39 AM LOSS PREVENTION INVESTIGATOR Legal Sex Female 7:33 PM CDT Gender Identity Female 03/22/2024 8:39 AM LOSS PREVENTION INVESTIGATOR Sexual Orientation Not on file Last Filed Vital Signs Vital Sign Reading Time Taken Comments Blood Pressure 139/90 03/22/2024 8:36 AM LOSS PREVENTION INVESTIGATOR Pulse 101 03/22/2024 8:36 AM LOSS PREVENTION INVESTIGATOR Temperature 37.2 C (98.9 F) 03/22/2024 8:36 AM LOSS PREVENTION INVESTIGATOR Respiratory Rate 16 03/22/2024 8:36 AM LOSS PREVENTION INVESTIGATOR Oxygen Saturation 98% 03/22/2024 8:36 AM LOSS PREVENTION INVESTIGATOR Inhaled Oxygen Concentration - - Weight 63.5 kg (140 lb) 03/22/2024 8:36 AM LOSS PREVENTION INVESTIGATOR Height 160 cm (5' 3 ) 03/22/2024 8:36 AM LOSS PREVENTION INVESTIGATOR Body Mass Index 24.8 03/22/2024 8:36 AM LOSS PREVENTION INVESTIGATOR Plan of Treatment Health Maintenance Due Date Last Done Comments Cervical Cancer Screening Pa p Smear (Age 30 to 64) Every 3 Years 1989 Hepatitis C 12/13/2007 Hepatitis B Vaccines (1 of 3 - 19+ 3-dose series) 2008 COVID-19 Vaccine (2023-2 5 season) 2023 Annual Physical 12/14/2023 12/13/2022, 12/25/2018 Cervical Cancer Screening Pa p with HPV Testing (Age 30 to 64) Every 5 Years 03/02/2026 03/02/2021 Cervical Cancer Screening wi th HPV 03/02/2026 DTaP, Tdap and Td Vaccines ( 3 - Td or Tdap) 06/03/2030 06/03/2020, 06/09/2018 PHQ-2 (Physician [place]) Completed 03/22/2024 HPV Vaccines Aged Out No longer eligi ble based on patient's age to complete this topic Meningococcal B Vaccine Aged Out No l onger eligible based on patient's age to complete this topic Meningococcal Vaccine Aged Out No elise agata eligible based on patient's age to complete this topic Pneumococcal Vaccine: Pediatrics (0 to 5 Years) and At-Risk Patients (6 to 49 Years) Aged Out No longer eligible b ased on patient's age to complete this topic RSV Immunizations Under 20 Months Aged Out No longer eligible b ased on patient's age to complete this topic Goals Goal Patient Goal Type Associated Problems Recent Progress Patient-Stated? Author Safety Patient/family will have appropriate support at home upon discharge Lanette Escalera RN Procedures Procedure Name Priority Date/Time Associated Diagnosis Comments CORONAVIRUS (COVID-19) INFLUENZA A & B ANTIGEN IA PANEL Routine 03/22/2024 Suspected COVID-19 virus infection STREP A RAPID Routine 03/22/2024 Sore throat OUTSIDE CYTOPATH CERV/VAG INTERPRET (PAP) 03/02/2021 from Last 3 Months or Most Recently Relevant to Health Maintenance Results * CORONAVIRUS (COVID-19) INFLUENZA A & B ANTIGEN IA PANEL (03/22/2024) CORONAVIRUS ANTIGEN IA NEGATIVE NEGATIVE [id number], [place] INFLUENZA A NEGATIVE NEGATIVE [id number] B NEGATIVE NEGATIVE [id number] Internal Control: VALID VALID [id number] NAS[facility] / Unknown 03/22/2024 Shilpi DIAL MICROBIOLOGY - GENERAL ORDER DOROTHY Final Result [id number], [place] [address] [place] [address], [place] [phone] * (ABNORMAL) STREP A RAPID (03/22/2024) RAPID STREP TEST POSITIVE(A ) NEGATIVE -[id number] LOU CHERRY Internal Control: VALID VALID MARY LOU [place] STRUCTURE OF ANTERIOR PORTION OF NECK / Unknown 03/22/2024 Shilpi DIAL MICROBIOLOGY - GENERAL ORDER DOROTHY Final Result -[id number] [place] [address] [place] [address], [place] [phone] * PAP SMEAR WITH HPV (03/02/2021) 03/02/2021 Narrative 03/02/2021 Ordered by an unspecified provider. us Documents Scanned SCANNING Final Result from Last 3 Months or Most Recently Relevant to Health Maintenance Insurance [facility] [place] [phone] Advance Directives * Full Code (Latest Code Status on File) Date Activated Date Inactivated Comments 07/11/2020 2:53 AM 07/12/2020 4:32 PM Care Teams Instrument Technician Apprentice Relationship Specialty Start Date End Date Sharri Marie, [employer] [address] [place] [address] PCP - General NURSE PRACTITIONER 04/10/22
--- OUTSIDE RECORDS SUMMARY | 2024-06-12 16:06 | XMS_ITS ---
Author Organization [facility] [place] ([address]) Address [address] [place] [address] Care Team Providers Care Strap Maker Name Role Phone Marielle Paez Unavailable [phone] REASON FOR VISIT (Emailed 03/08) Immunotherapy OOP Estimate Encounters Encounter Location Date Provider Diagnosis [facility] [address] [place] [address] 03/04/2024 Marielle Paez Plan Of Treatment No Information Progress Notes * Isidra GILESOB:1990 (33 yo F)Acc No.[id number]:03/04/2024 Patient: Caryl SULLIVAN :1990 A ge:33 Y S ex:Female Address:[address] [place] [address] * true * Date: Generated for Printi ng/Faxing/eTransmitting on: 0 06/12/2024 04:06 PM CDT
--- OUTSIDE RECORDS SUMMARY | 2024-06-12 16:06 | XMS_ITS | Data Portability ---
Author Organization [facility], [id number] Address [address] [place] [address] Assessment No assessment recorded. Plan of Treatment Reminders Order Date Submit Date Provider Last Modified By Organization Details Last Modified Time Details Appointments ANNUAL- EST 15 2025 09:15A Matilde DAI MD Not available Not available Not available Lab HPV DNA, high-ris k 2024 025 [facility] ([facility]), [address] [address], [place], [address], 04/06/2024 16:44:31 lipid panel, serum 2024 025 [facility], [address], [place], [address], 04/10/2024 12:07:34 CMP, serum or plasma 2024 025 [facility], [address], [place], [address], 04/10/2024 12:07:33 CBC w/ auto diff 2024 025 [facility], [address], [place], [address], 04/10/2024 12:07:34 TSH, serum or plasma 2024 025 [facility], [address], [place], [address], 04/10/2024 12:07:33 HbA1c (hemoglo bin A1c), blood 2024 025 [facility], [address], [place], [address], 04/10/2024 12:07:33 TSH + free T4, serum 2024 025 [facility], [address], [place], [address], 04/10/2024 12:07:33 vitamin D, 25-hydro xy, total, serum 2024 025 [facility], [address], [place], [address], 04/10/2024 12:07:33 pap, LB 2024 025 [facility] ([facility]), [address], [facility] [address], [place], [address], 04/06/2024 16:44:30 Referral None recorded . Procedures None recorded . Surgeries None recorded . Imaging None recorded . Medication Orders None recorded . Patient TargetsNo targets recorded. Patient InstructionsNo instructions recorded. Reason for Referral None Reported. Results Created Date Observation Date Name Description Value Unit Range Abnormal Flag Note LastModifiedBy Organization Detail LastModifiedTime 04/02/1904/06/2024 PAP TEST THIN PREP Pap test thin prep Negati ve for Intrae pithel ial Lesion or Malign angelica normal ACCES YAN #: [id number] Sourc e: Cervi aletha/E ndoce rvica l LMP: Date Taken : 04/02 Speci men Type: ThinP rep Vial Date Repor gita: 2024 Clini aletha Data: Cytot ech: Olivia Montes , CT( CP) Date Repor gita: 2/25/ 2025 Revie wed By: Judy Pizano , CT( CP) Speci men Adequ acy: Satis facto ry for evalu ation Endoc ervic al/tr ansfo rmati on zone compo nent prese nt Gener al Categ oriza tion: NEGAT NANCY FOR INTRA EPITH ELIAL LESIO N OR MALIG DARON This speci men has been dorian zed by the ThinP rep Imagi ng Syste m, an inter activ e compu ter syste m which amol ts the lab in the scree july of ThinP rep Pap Test slide s. Follo wing imagi ng, the slide was revie wed by a Cytot echno logis t and/o r Patho logis t. Cervi aletha cytol ogy is a scree july test prima rily for squam ous cance rs and precu rsors and has assoc iated false -nega tive and false -posi tive resul ts. New techn ologi es such as liqui d-bas ed prepa ratio ns may decre ase but will not elimi yodit all false -nega tive resul ts. Regul ar sampl ing and follo w-up of unexp marquise d clini aletha signs and sympt oms are recom beth d to minim ize false negat nancy resul ts. D N A A S S A Y S R E P O R T TEST NAME RESUL TS ----- ---- ----- -- HPV High Risk Scree n (TMA) ThinP rep Vial The human papil lomav irus (HPV) High Risk Scree n is an FDA-a pprov ed in-vi tro ampli fied nucle ic acid test for the quali tativ e detec tion of E6/E7 viral mRNA. Resul ts shoul d be corre lated with patie nt prese ntati on, histo ry, cervi aletha cytol ogy and other clini aletha and labor atory findi ngs. See https ://eloisa wSupersolid/s ites/ defau lt/fi les/2 018-0 3/AW- 89022 _002_ 01.pd f for furth er infor matio n. Test perfo rmed by [facility], [address], [place] [address] , Katina Dinh ra, DO, [facility], CLIA# [id number] HPV High Risk *HPV NOT DETEC GITA (TYPE S 16, 18, 31, 33, 35, 39, 45, 51, 52, 56, 58, 59, 66, 68) *HPV: The human papil lomav irus (HPV) High Risk Avelino balderrama is an FDA-a pprov ed in-vi tro ampli fied nucle ic acid test for the quali tativ e detec tion of E6/E7 viral mRNA. Resul ts shoclaudia d be corre lated with sol ruth prese ntati on, histo ry, cervi aletha cytol ogy and other clini aletha and labor atory findi ngs. See https ://Zenamins/s ites/ deftam lt/fi les/2 018-0 3/AW- 00704 _002_ 01.pd f for brad er infor gayatri n. Test perfo rmed by [facility] [employer] [facility], [address], [place] [address] , Katina Dinh ra, DO, Labor [employer] [facility], CLIA# [id number] End of Repor t Techn ical servi valerio provi ded by [facility] [employer], [facility], [address] [place] [address] Aram rose MD, [facility]. Case revie wed and diagn osis rende red at [facility] [employer], [facility], [address] [place] [address] Aram rose MD, [facility]. CONFI DENTI AL Not Available [facility] ([facility]) [address], [place], [address], 04/06/2024 16:44:30 04/02/19 25 04/03/2024 HPV HIGH RISK SCREE N (TMA) HPV high risk NOT DETECT ED normal Not Available [facility] ([facility]) [address], [place], [address], 04/06/2024 16:44:31 Result Notes None recorded. Problems Name Problem SNOMED Code Status Onset Date Resolution Date Notes Provider Name and Address Organization Details Recorded Time History of human papilloma virus infection 96727140335 9102 Active 2024 Daniela carrillo [facility] 5 15:44:23 Irritable bowel syndrome 41657727 Active 2024 Daniela carrillo [facility] 5 15:44:32 Premature delivery 303311651 Active 2018 Daniela carrillo [facility] 5 15:45:45 Break-thr ough bleeding 51554013 Active 2024 SAIRA AGUILA CNM [address], [place], [address] , [facility] for [facility] 5 16:16:48 Gynecolog ic examinati on Active 2024 SAIRA AGUILA CNM [address], [place], [address] , [facility] 5 16:18:09 Human papilloma virus infection 234069371 Active HPV, Problem Code: 079.4; Problem Code Type: ICD-9; Startdate : '03/02/21 Positive' ; Not Available [facility] 5 12:02:17 Premature delivered 08476026 Active Premature Delivery, PROM at 34weeks Problem Code: 644.21; Problem Code Type: ICD-9; Startdate : '2019'; Not Available [facility] 5 12:02:17 Problem Notes None recorded. Procedures Surgical History Date Name Laterality Status Provider Name and Address Organization Details Recorded Time 11/20 decompression of ulnar nerve at elbow completed [facility] for [facility] 5 15:56:13 04/04 Date of Last Pap Smear completed Daniela [facility] [place] for [facility] 5 15:46:00 05/31 diagnostic loop electrosurgical excision procedure completed [facility] 5 15:48:38 09/27 Colposcopy completed [facility] for [facility] 5 15:48:09 Colonoscopy completed [facility] 5 15:43:17 esophagogastroduodenoscopy completed [facility] 5 15:48:21 extraction of wisdom tooth completed [facility] for [facility] 5 15:48:48 Conization of cervix completed Not Available [facility] 5 12:35:18 colposcopy completed Not Available [facility] 5 12:35:18 endoscopy completed Not Available [facility] 5 12:35:18 colonoscopy completed Not Available [facility] 5 12:35:18 Imaging Results None recorded. Procedure Notes None recorded. Medical Equipment None Reported. Allergies Allergen ID Allergen Name Allergen Category Reaction Reaction Severity Criticality Documentation Date Start Date Code Code System Note Provider Name and Address Organization Details Recorded Time 021411 house dust allergeni c extract environme nt,medica tion Not available Not available Not available 04/02/2024 92019 9 RxNorm Daniela carrillo, [place] - [facility] 5 15:43:52 771614 tree nut food Not available Not available Not available 04/02/2024 05579 UNK Daniela vences null, [place] - [facility] 5 15:43:52 273943 cat dander environme nt Not available Not available Not available 04/02/2024 34717 UNK Danielacely vences [facility] 15:43:52 301630 mold extract environme nt Not available Not available Not available 04/02/2024 27536 8 RxNorm Daniela Torrey vences [facility], [facility] 15:43:52 Medications Name Sig Start Date Stop Date Status Note LastModified by Organization Details LastModified Time azithromyci n 250 mg tablet TAKE 2 TABLETS BY MOUTH TODAY, THEN TAKE 1 TABLET DAILY FOR 4 DAYS DIRECTED 04/02 completed Not Available Not Available Not Available hydrocodone 5 mg-acetamin ophen 325 mg tablet TAKE 1-2 TABLETS BY MOUTH EVERY 6 (SIX) HOURS NEEDED FOR MODERATE PAIN 04/02 completed Not Available Not Available Not Available prednisone 20 mg tablet TAKE 2 TABLETS BY MOUTH EVERY DAY FOR 5 DAYS 04/02 completed Not Available Not Available Not Available phentermine 37.5 mg tablet TAKE ONE TABLET BY MOUTH DAILY. AVOID CAFFEINE 04/02 completed Not Available Not Available Not Available lidocaine 5 % topical patch PLACE 1 PATCH ON SKIN DAILY FOR 30 DAYS. REMOVE & DISCARD PATCH WITHIN 12 HOURS OR DIRECTED BY MD active Not Available Not Available No t Available mupirocin 2 % topical ointment APPLY 1 APPLICATI ON TOPICALLY TWICE A DAY FOR 5 DAYS 04/02 completed Not Available Not Available Not Available epinephrine 0.3 mg/0.3 mL injection, auto-inject or INJECT NEEDED FOR ANAPHYLAX IS active Not Available Not Available No t Available albuterol sulfate HFA 90 mcg/actuati on aerosol inhaler INHALE 2 PUFFS INTO THE LUNGS EVERY 4 HOURS NEEDED FOR 30 DAYS active Not Available Not Available No t Available Kunal Olea [facility] spacer USE WITH INHALER DIRECTED active Not Available Not Available No t Available Vestura (28) 3 mg-0.02 mg tablet TAKE 1 TABLET BY MOUTH EVERY DAY 2024 active Not Available Not Available Not Avai lable Vitals Date Recorded Body height Body mass index (BMI) Body weight Systolic blood pressure Diastolic blood pressure Provider Name and Address Organization Details Last Updated DateTime 04/02/2024 160.02 cm 24.6 kg/m2 18179.62 g 110 mm[Hg] 64 mm[Hg] Daniela Tavarezvirgil [facility] 15:52:53 Social History Question Answer Notes LastModified by Organizat ion Details LastModified Time Tobacco Smoking Status Never Smoker Daniela Sesaybhaskar [facility] 04/02/2024 15:43:37 Do You Have An Advance Directive? No Information not available 04/02/2024 What Is Your Level Of Alcohol Consumption? Occasional Information not available 04/02/2024 If You Are , What Was Your Level Of Alcohol Consumption Prior To ? None Information not available 04/02/2024 How Many Years Have You Consumed Alcohol? 15 Information not available 04/02/2024 What Is Your Level Of Caffeine Consumption? Moderate Information not available 04/02/2024 Are You Currently Employed? Yes Information not available 04/02/2024 What Type Of Diet Are You Following? REGULAR Information not available 04/02/2024 What Is Your Relationship Status? Information not available 04/02/2024 Do You Use Any Illicit Or Recreational Drugs? No Information not available 06/10/2024 Sex: Unknown Functional Status Question Answer Note LastModified by Organizat ion Details LastModified Time What is your exercise level? Heavy Note: - [employer] 05/01/2022 Information not available 06/10/2024 Mental Status None recorded. Family History Relationship Description Onset Age of this Age Resolved Age Notes LastModified by Organization Details LastModified Time Father No current problems or disability bvoellinger Not available 15:55:27 Mother No current problems or disability bvoellinger Not available 15:55:27 Father Malignant neoplastic disease Cancer MGF-le ukemia and hokini ns lympho ma - [employer]rees ia 2020 Not available 06/10/2024 18:23:40 Maternal Grandfather Malignant neoplastic disease Cancer MGF-le ukemia and hokini ns lympho ma - [employer] 2020 Not available 06/10/2024 18:23:40 Paternal Grandfather Malignant neoplastic disease Cancer MGF-le ukemia and marybethi ns lympho ma - [employer] 2020 Not available 06/10/2024 18:23:41 Paternal Grandfather Heart disease Heart Diseas e Not available 06/10/2024 18:23:41 Paternal Grandfather Diabetes mellitus Diabet es Not available 06/10/2024 18:23:41 Medical History Condition Response GI- Irritable Bowel Syndrome Y Cancer- Genetic screening Gynecological History Statement/Question Response Flow Moderate History of Fibroids N Date of LMP 03/28/2024 Current Control Method: Combined O ral Contraceptive Pills History of Recurrent Ovarian Cysts N Age at first intercourse 16 Post Menopausal Hormone Therapy User Nev er Date of Last Colonoscopy Date of Last HPV Test 04/04/2023 12 History of PCOS N History of Infertility N History of Cervical Dysplasia N History of Vulvar Dysplasia N Duration of Flow (days) 3 History of HPV Y Current Control Method Age at Menarche 12 History of Endometriosis N Frequency of Cycle (Q days) 27 Sexually Active? Y History of Abnormal PAP Y History of Dysmenorrhea N Menses Monthly Y Date of Last Pap Smear 04/04/2023 Sexual Problems? N History of Sexually Transmitted Infectio n N Obstetrics History GPAL:G 2 P 2 0 0 2 Type Value Full Term 2 Living 2 Total 2 Past Encounters Encounter ID Performer Location Encounter Start Date Encounter Closed Date Diagnosis/Indication Diagnosis SNOMED-CT Code Diagnosis ICD10 Code Diagnosis Note [id number] SAIRA AYLA [facility] [id number] [facility] 110_[address] [place] [address] 04/02/2024 15:02:32 04/02/2024 16:18:10 Gynecologic examination 30521172 Z01.419 Screening for malignant neoplasm of cervix 663956624 Z12.4 Human sarmad lloma virus screening 577324120 Z11.51 Break-thro ugh bleeding 81948368 N92.1 Had some breakthrou gh bleeding last cycle. Is going to come off control after husbands semen analysis is clear. Will monitor and call if continues. General ex amination of patient 444997318 Z00.00 Health Concerns Section Related Observation LastModified by Organization Detai ls LastModified Time None Recorded Concern Status LastModified by Organization Details LastModified Time None Recorded Advance Directives Directive N: Payers Encounter Date Sequence Insurance Name Policy Number Policy Cat Covered Member ID Cat Member ID Guarantor Name 04/02/2024 1 [facility] 02/11/2024 AND AFTER [id number] Caryl Cuello [id number] Caryl Cuello Notes Date Note Type Note Provider Name and Address Organization Details Recorded Time 04/02/2024 text/html [facility] [place] Annual Well-Women Visit Age 40-64Reported bypatient.Current Medical History:up-to-date Mammography:not applicable Bone Density Study:not applicable Colorectal screening:not applicable Diabetes screening:up-to-kai e Lipid screening:up-to-kai e Thyroid [id number] Risk factors for cervical cancer ([facility]) Z91.89:no risk factors Medical risk factors:no historical risk factors Contraceptive Method:satisfied with current method; contraceptive method: Sexually Active:Yes: STI Screen:declines STI testing Menstrual cycle:Frequency of Menses: monthly; Quantity of Flow: moderate Breast:Denies breast pain, lumps or discharge SAIRA AGUILA [facility] [address], [place], [address] [place] [address] [facility] 04/02/2024 16:22:15 OBGyn Episode Ob Episode Information Episode Created Date Number of Fetuses Patient Bloodtype Patient rh Status Prepregnancy Weight lbs Domestic Partner Domestic Partner Phone Father Name Vice President Sales And Marketing Status 04/02/19 25 1 CLOSED Fetus Data First Name Last Name Admitted to NICU Weight (g) Sex Living Outcome Pediatric Complications Fetus ID Race Codes Race Delivery Type 2352.78 1704 F Prematur e [id number] Vaginal Aly Calculation Initial Aly Date Initial Exam Date Initial Exam Provider Initial Ultrasound Date Last Menstrual Period Date Ultra Sound Weeks Gestation 0 Eighteen To Twenty Week Aly Update Ultra Sound Date Fundal Height At Umbil Quickening Date Ultra Sound Latest Weeks Gestation Final Aly Confirmed By Final Aly Confirmed Date Final Aly Date Ultra Sound Latest Days Gestation 0 0 Menstrual History Last Menstrual Date Menses Monthly On Bcp Conception Prior Menses Frequency Hcg Plus Date Menarche Onset Age Delivery Information Delivery Date Delivery Type Labor Anesthesia Weeks Gestation Incision Type Labor Labor Length Hrs Delivered By Post Complications Tubal Sterilization Discharge Date Comments 9 34 ADP Discharge Information Feeding Method Contraceptive Method Maternal HG B and HCT Levels Ob Episode Information Episode Created Date Number of Fetuses Patient Bloodtype Patient rh Status Prepregnancy Weight lbs Domestic Partner Domestic Partner Phone Father Name Vice President Sales And Marketing Status 04/02/19 25 1 CLOSED Fetus Data First Name Last Name Admitted to NICU Weight (g) Sex Living Outcome Pediatric Complications Fetus ID Race Codes Race Delivery Type 2636.27 6704 Prematur e [id number] Vaginal Aly Calculation Initial Aly Date Initial Exam Date Initial Exam Provider Initial Ultrasound Date Last Menstrual Period Date Ultra Sound Weeks Gestation 0 Eighteen To Twenty Week Aly Update Ultra Sound Date Fundal Height At Umbil Quickening Date Ultra Sound Latest Weeks Gestation Final Aly Confirmed By Final Aly Confirmed Date Final Aly Date Ultra Sound Latest Days Gestation 0 0 Menstrual History Last Menstrual Date Menses Monthly On Bcp Conception Prior Menses Frequency Hcg Plus Date Menarche Onset Age Delivery Information Delivery Date Delivery Type Labor Anesthesia Weeks Gestation Incision Type Labor Labor Length Hrs Delivered By Post Complications Tubal Sterilization Discharge Date Comments 1 34 true ADP Discharge Information Feeding Method Contraceptive Method Maternal HG B and HCT Levels
--- OUTSIDE RECORDS SUMMARY | 2024-06-12 16:06 | XMS_ITS | Encounter Summary ---
Author Organization [facility] Address [address] [place] [address] Care Team Providers Care Dialysis Social Worker Name Role Phone Sharri Marie [facility] Primary Care Provider + Encounter Details Date Type Department Care Team (Late st Contact Info) Description 06/09/2023 Red-M Group Message [facility] [address] [place] [address] Sharri Marie, [facility] [address] [place] [address] EMG/Nerve conductor test Social History Tobacco Use Types Packs/Day Years Used Date Smoking Tobacco: Never Smokeless Tobacco: Never Alcohol Use Standard Drinks/Week Comments Yes 0 (1 standard drink = 0.6 oz pur e alcohol) occasionally. PHQ-2 Answer Date Recorded Patient Health Questionnaire-2 Score 0 05/29/2023 Comments No Sex and Gender Information Value Date Recorded Sex Assigned at Female 03/22/2024 8:39 AM MACHINE HEEL SPRAYER Legal Sex Female 7:33 PM CDT Gender Identity Female 03/22/2024 8:39 AM MACHINE HEEL SPRAYER Sexual Orientation Not on file documented as of this encounter Functional Status * RETIRED Are you deaf or do you have serious difficulty hearing Answer Date of Assessment Author Status Yes 07/11/2020 2:42 AM CDT Activ e * RETIRED Are you blind or do you have serious difficulty seeing, even when wearing glasses? Answer Date of Assessment Author Status No 07/11/2020 2:42 AM CDT Activ e * Do you have serious difficulty walking or climbing stairs? Answer Date of Assessment Author Status No 07/11/2020 2:42 AM EMMAT Eleanor Perdue RN Active * Do you have difficulty dressing or bathing? Answer Date of Assessment Author Status No 07/11/2020 2:42 AM EMMAT Eleanor Perdue RN Active * Because of a physical, mental, or emotional condition, do you have difficulty doing errands alone such as visiting a doctor's office or shopping? Answer Date of Assessment Author Status No 07/11/2020 2:42 AM CDT Eleanor Perdue RN Active documented as of this encounter Mental Status * Because of a physical, mental, or emotional condition, do you have serious difficulty concentrating, remembering, or making decisions? Answer Entry Date Author Status No 07/11/2020 2:42 AM EMMAT Eleanor Perdue RN Active documented in this encounter Plan of Treatment Not on file documented as of this encounter Goals Goal Patient Goal Type Associated Problems Recent Progress Patient-Stated? Author Safety Patient/family will have appropriate support at home upon discharge General No Lanette Ontiveros RN documented as of this encounter Visit Diagnoses Not on filedocumented in this encounter Additional Health Concerns Infection Onset Date Last Indicated Resolved Time COVID-19 Rule Out 03/22/2024 03/22/2024 03/22/2024 9:03 AM MACHINE HEEL SPRAYER documented as of this encounter Care Teams Dialysis Social Worker Relationship Specialty Start Date End Date Sharri Marie, ASSISTANT SIGNAL MAINTAINER- [address] [place] [address] PCP - General NURSE PRACTITIONER 04/10/22 documented as of this encounter
--- OUTSIDE RECORDS SUMMARY | 2024-06-12 16:06 | XMS_ITS | Encounter Summary ---
Author Organization [facility] Address [address] [place] [address] Care Team Providers Care Printing And Stamping Supervisor Name Role Phone Sharri Marie [facility] Primary Care Provider + Encounter Details Date Type Department Care Team (Late st Contact Info) Description 12/03/2023 Salonmeistert Message Enc [facility] - [place] [address] [place], [place] [phone] Edwin Villalobos MD [address] [place], [place] [phone] New bruising Social History Tobacco Use Types Packs/Day Years Used Date Smoking Tobacco: Never Smokeless Tobacco: Never Alcohol Use Standard Drinks/Week Comments Yes 6.7 (1 standard drink = 0.6 oz p ure alcohol) occasionally. PHQ-2 Answer Date Recorded Patient Health Questionnaire-2 Score 0 07/31/2023 Comments No Sex and Gender Information Value Date Recorded Sex Assigned at Female 03/22/2024 8:39 AM ASSET PROTECTION LEAD Legal Sex Female 7:33 PM CDT Gender Identity Female 03/22/2024 8:39 AM ASSET PROTECTION LEAD Sexual Orientation Not on file documented as [...] Rule Out 03/22/2024 03/22/2024 03/22/2024 9:03 AM ASSET PROTECTION LEAD documented as of this encounter Care Teams Printing And Stamping Supervisor Relationship Specialty Start Date End Date Sharri Marie, PULL WORKER- [address] [place] [address] PCP - General NURSE PRACTITIONER 04/10/22 documented as of this encounter
--- OUTSIDE RECORDS SUMMARY | 2024-06-12 16:06 | XMS_ITS | Encounter Summary ---
Author Organization [facility] Address [address] [place] [address] Care Team Providers Care Radial Drill Operator For Plastic Name Role Phone Sharri Marie [facility] Primary Care Provider + Encounter Details Date Type Department Care Team (Late st Contact Info) Description 06/13/2022 Apollidon Message [address] [phone] [facility] Provider Schedule Appointment for Annual Physical Social History Tobacco Use Types Packs/Day Years Used Date Smoking Tobacco: Never Smokeless Tobacco: Never Alcohol Use Standard Drinks/Week Comments Yes 0 (1 standard drink = 0.6 oz pur e alcohol) occasionally. PHQ-2 Answer Date Recorded PHQ-2 Score - If the patient scores above 3, please move on to questions 3-9 0 09/05/2021 Comments No Sex and Gender Information Value Date Recorded Sex Assigned at Female 03/22/2024 8:39 AM WHEAT AND OATS FLAKE MILLER Legal Sex Female 7:33 PM CDT Gender Identity Female 03/22/2024 8:39 AM WHEAT AND OATS FLAKE MILLER Sexual Orientation Not on file COVID-19 Exposure Response Date Recorded In the last 10 days, have yo u been in contact with someone who was confirmed or suspected to have Coronavirus/COVID-19? No / Unsure 06/11/2022 3:45 PM CDT documented as of this encounter Functional Status [...] 2:42 AM CDT Eleanor Perdue RN Active * Do you have difficulty dressing or bathing? Answer Date of Assessment Author Status No 07/11/2020 2:42 AM CDT Eleanor Perdue RN Active * Because of [...] Date Author Status No 07/11/2020 2:42 AM CDT Eleanor Perdue RN Active documented in this [...] Last Indicated Resolved Time COVID-19 Rule Out 11/30/2022 11/30/2022 11/30/2022 7:47 AM CDT COVID-19 Rule Out 05/29/2023 05/29/2023 05/29/2023 4:30 PM CDT COVID-19 Rule Out 03/22/2024 03/22/2024 03/22/2024 9:03 AM WHEAT AND OATS FLAKE MILLER documented as of this encounter Care Teams Radial Drill Operator For Plastic Relationship Specialty Start Date End Date Sharri Marie, SOAPSTONER- [address] [place] [address] PCP - General NURSE PRACTITIONER 04/10/22 documented as of this encounter
--- OUTSIDE RECORDS SUMMARY | 2024-06-12 16:06 | XMS_ITS | Encounter Summary ---
Author Organization [facility] Address [address] [place] [address] Care Team Providers Care Thread Milling Machine Set Up Operator Name Role Phone Mimi Mai STATE DIRECTOR Primary Care Provider [phone] Noel Zhang DO Primary Care Provider Kami De Luna INSOLE FILLER Primary Care Provider [phone] Sharri Marie [facility] Primary Care Provider + Reason for Visit * Reason Onset Date Comments Discharge Summary 07/17/2020 discharge call back Encounter Details Date Type Department Care Team (Late st Contact Info) Description 07/17/2020 Telephone [facility] [address] [place] [phone] Cathleen Reynolds, vegetable farm worker Summary (discharge call back ) Social History Tobacco Use Types Packs/Day Years Used Date Smoking Tobacco: Never Smokeless Tobacco: Never Alcohol Use Standard Drinks/Week Comments Yes 0 (1 standard drink = 0.6 oz pur e alcohol) on occasion Comments No Sex and Gender Information Value Date Recorded Sex Assigned at Female 03/22/2024 8:39 AM SUBSTITUTE TEACHER Legal Sex Female 7:33 PM CDT Gender Identity Female 03/22/2024 8:39 AM SUBSTITUTE TEACHER Sexual Orientation Not on file COVID-19 Exposure Response Date Recorded In the last month, have you been in contact with someone who was confirmed or suspected to have Coronavirus / COVID-19? No / Unsure 07/11/2020 2:37 AM CDT documented as of this encounter Functional [...] AM EMMAT Eleanor Perdue RN Active documented as of [...] Last Indicated Resolved Time COVID-19 Rule Out 08/01/2021 08/01/2021 08/01/2021 11:31 AM CDT COVID-19 Confirmed 08/01/2021 08/01/2021 12:32 AM CDT COVID-19 Rule Out 11/30/2022 11/30/2022 11/30/2022 7:47 AM CDT COVID-19 Rule Out 05/29/2023 05/29/2023 05/29/2023 4:30 PM CDT COVID-19 Rule Out 03/22/2024 03/22/2024 03/22/2024 9:03 AM SUBSTITUTE TEACHER documented as of this encounter Care Teams Thread Milling Machine Set Up Operator Relationship Specialty Start Date End Date Mimi Mai FNP [address] [place] [address] PCP - General Nurse Practitioner Family 12/07/1811/30 Noel Zhang DO [address] [facility] [address] [place] [address] PCP - General FAMILY PRACTICE 11/20/20 07/22/21 Kami De Luna, VIRA [address] [facility] [place] [address] PCP - General NURSE PRACTITIONER 07/23/21 04/09/22 Sharri Marie, STATE DIRECTOR- [address] [facility] [place] [address] PCP - General NURSE PRACTITIONER 04/10/22 documented as of this encounter
--- OUTSIDE RECORDS SUMMARY | 2024-06-12 16:07 | XMS_ITS ---
Author Organization [facility] [employer] [place] ([address]) Address [address] [place] [address] Care Team Providers Care Vascular Nurse Name Role Phone Marielle Paez Unavailable [phone] Allergies No Known Allergies Results Component Value Reference Range Notes PRICE IFA, W/REFL TO TITER/PAT TERN/CASCADE Reviewed date:04/13/2024 09:17:17 AM Interpretation:Normal Performing Lab:[place], [place], [address] [address], [address] Alia Sesay MD Notes/Report: NON-FASTING; NON-FASTING; NON-FASTING PRICE SCREEN, IFA NEGATIVE NEGATIVE PRICE IFA is a first line screen for detecting the presence of up to approximately 150 autoantibodies in various autoimmune diseases. A negative PRICE IFA result suggests an PRICE-associated autoimmune disease is not present at this time, and does not reflex further. If there is high clinical suspicion for Sjogren's syndrome, testing for anti-SS-A/Ro antibody should be considered. Anti-Yany-1 antibody should be considered for clinically suspected inflammatory myopathies. AC-0: Negative International Consensus on PRICE Patterns (https://doi.org/10.1515/cclm -1186-5951) For additional information, please refer to http://education.[employer].com/faq/LFI409 (This link is being provided for informational/ educational purposes only.) C1 INHIBITOR, FUNCTIONAL Reviewed date:04/13/2024 09:19:00 AM Interpretation:Normal Performing Lab:[facility], [address], [place], [place], Armen Shukla M.D.,PhD Notes/Report: NON-FASTING; NON-FASTING; NON-FASTING C1 ESTERASE INHIBITOR, FUNCTIONAL >100 >=68 % Reference Range: > or = 68%: Normal 41-67%: Equivocal < or = 40%: Abnormal Less than 40% of the reference functional activity indicates a likely diagnosis of hereditary angioedema or acquired C1 Inhibitor deficiency. For additional information, please refer to: http://education.[employer]/faq/FAQ54 (This link is being provided for informational/ educational purposes only.) C1 INHIBITOR, PROTEIN Reviewed date:04/13/2024 09:19:22 AM Interpretation:Normal Performing Lab:[facility], [address], [place], [place], Armen Shukla M.D.,PhD Notes/Report: NON-FASTING; NON-FASTING; NON-FASTING C1 ESTERASE INHIBITOR, PROTEIN 33 21-39 mg/d L A normal C1 esterase inhibitor protein level does not rule out the possibility of a functional C1 esterase inhibitor deficiency. Consider further testing of C1 esterase inhibitor functional activity, if clinically indicated. URINALYSIS, COMPLETE W/REFLE X TO CULTURE Reviewed date:04/13/2024 09:17:46 AM Interpretation:Normal [facility]forming [facility], [address] [place] [address] , [place], [address] [facility] Notes/Report: NON-FASTING; NON-FASTING; NON-FASTING COLOR YELLOW YELLOW APPEARANCE CLEAR CLEAR SPECIFIC GRAVITY 1.021 1.001-1.035 PH 6.5 5.0-8.0 GLUCOSE NEGATIVE NEGATIVE BILIRUBIN NEGATIVE NEGATIVE KETONES NEGATIVE NEGATIVE OCCULT BLOOD NEGATIVE NEGATIVE PROTEIN NEGATIVE NEGATIVE NITRITE NEGATIVE NEGATIVE LEUKOCYTE ESTERASE NEGATIVE NEGATIVE WBC 0-5 < OR = 5 /HPF RBC NONE SEEN < OR = 2 /HPF SQUAMOUS EPITHELIAL CELLS 0-5 < OR = 5 /HPF BACTERIA NONE SEEN NONE SEEN /HPF HYALINE CAST NONE SEEN NONE SEEN /LPF NOTE This urine was analyzed for the presence of WBC, RBC, bacteria, casts, and other formed elements. Only those elements seen were reported. COMPLEMENT COMPONENT C4C Reviewed date:04/13/2024 09:18:39 AM Interpretation:Normal Performing Lab:[place], [address] [place], [address] Alia Sesay MD Notes/Report: NON-FASTING; NON-FASTING; NON-FASTING COMPLEMENT COMPONENT C4C 25 15-57 mg/dL C-REACTIVE PROTEIN Reviewed date:04/13/2024 09:18:11 AM Interpretation:Normal Performing Lab[facility], [address] [place], [address] [facility] Notes/Report: NON-FASTING; NON-FASTING; NON-FASTING C-REACTIVE PROTEIN <5.0 <8.0 mg/L COMPLEMENT, TOTAL (CH50) Reviewed date:04/27/2024 09:48:51 PM Interpretation:Abnormal Performing Lab:[facility] [place], [address] [place], [address] Alia Sesay MD Notes/Report: NON-FASTING; NON-FASTING; NON-FASTING COMPLEMENT, TOTAL (CH50) >60 31-60 U/mL REFLEXIVE URINE CULTURE Reviewed date:04/13/2024 09:17:33 AM Interpretation:Normal Performing Lab[facility], [address] [place], [address] [facility] Notes/Report: NON-FASTING; NON-FASTING; NON-FASTING REFLEXIVE URINE CULTURE NO C ULTURE INDICATED REASON FOR VISIT ARC - Using Zyrtec nightly with associated drowsiness and Flonase 2x week., Cough triggered by dustor when cleaning with 2 episodes of chest tightness. No interval episodes or albuterol use., Angioedema 3-4 times at age 9 or 10. Now reoccurring over the past two months. No interval episodes. Now carries AIE., Rashes to neck, back and arms lasting for several days. Occurring every other month for years. No interval episodes., Concern for allergy to pistachio due to prior blood testing. Reportssevere abdominal pain after pistachio ingestion in 2021. Continues avoidance. Skin testing positivewith Immunocap showing IgE elevation at 0.12. Medications Medication SIG (Take, Route, Frequency, Duration) Notes Start Date End Date Status Fexofenadine HCl 180 MG 1 tablet Orally Once a day for 30 days 03/04/2024 Active Nasal Washes N/A as directed intranasally 03/04/19 25 Active Fluticasone Propionate 50 MCG/ACT 1 spray in each nostril Nasally Twice a day for 30 days Active Cetirizine HCl 10 MG 1 tablet Orally Onc e a day for 30 days Active Mupirocin 2 % 1 application Stoker Mechanic ally Twice a day for 5 days 03/04/2024 Active Lo-Zumandimine 3-0.02 MG Oral for 84 Days Active EPINEPHrine 0.3 MG/0.3ML as directed Inj ection as needed for 30 days Active AeroChamber MV - as directed for 30 days Any adult spacer Active Albuterol Sulfate HFA 108 (90 Base) MCG/ACT 2 puffs as needed Inhalation every 4 hrs for 30 days Active Aleve-D Sinus & Cold 120-220 MG 1 tablet as needed Orally every 12 hrs Active Social History Tobacco Use: Social History Observation Description Date Details (start date - stop date) Never Smoker NA - NA Tobacco Control (Standard) Question Answer Notes Tobacco use: Nonsmoker Problems Problem Type SNOMED Code ICD Code Onset Dates Problem Status W/U Status Risk Notes Problem Chronic rhinitis (J31.0) Active confirmed Vital Signs Blood pressure systolic 117 mm Hg 03/04/19 25 Blood pressure diastolic 84 mm Hg 025 Height 63 in 03/04/2024 Weight 140.4 lbs 03/04/2024 BMI 24.87 kg/m2 03/04/2024 Oximetry 99 % 03/04/2024 Encounters Encounter Location Date Provider Diagnosis [facility] [address] [facility] [place] [address] 03/04/2024 Marielle Paez Allergic rhinitis du e to [...] Treatment Notes Treatment Clinical Notes Section Notes 03/04/2024 Allergic rhinitis due to pollen (ICD-10 - [...] Recommend against frequent use of Aleve decongestant. Prior documentated error. - Will stop Zyrtec and attempt Vero given c/o drowsiness. Will hold Flonase - see below. - Patient is considering SCIT - recommend Zyrtec. Recommend triple premedication if undergoing rapid desensitization during Spring. - AIE to be carried at all times - see below. - Follow-up in 3-6 months for E&M 03/04/2024 Allergic rhinitis due to animal (cat) (dog) hair and dander (ICD-10 - J30.81) Follow allergen avoidance, meds and consider SCIT as an adjunctive treatment to current regimen 03/04/2024 Other allergic rhinitis (ICD-10 - J30.89) Follow allergen avoidance, meds and consider SCIT as an adjunctive treatment to current regimen 03/04/2024 Other chronic allergic conjunctivitis (ICD-10 - H10.45) Given ocular signs and symptoms I encouraged allergy avoidance measures and meds as above. If symptoms persist, consider adding additional medications including intraocular antihistamine/mast cell stabilizer, PRN and consider SCIT as an adjunctive measure 03/04/2024 Chronic rhinitis (ICD-10 - J31.0) Today's exam is concerning for atrophic rhinitis. -Given exam today, will attempt mupirocin 2% BID x 5 days. Proper demonstration on application given. -Encouraged Nasal rinses and AYR gel after completion of mupirocin to enhance moisturization of nasal passages. -Follow-up in 4 weeks for E&M 03/04/2024 Cough, unspecified (ICD-10 - R05.9) Caryl reports [...] BD challege for persistent or worsening symptoms. 03/04/2024 Angioneurotic edema, initial encounter (ICD-10 - T78.3XXA) [...] 24 hours. She uses tylenol for pain. Using Aleve Cold & Sinus 4 times per week, last used . She admits to 1 glass of wine nightly. No interval episodes of swelling, but does report lip burning and tingline 2 days ago. - Discussed with Dr. Fry, - Laboratory workup notable for positive PRICE 1:40. Discussed with Dr. Fry. Will plan to repeat in 1 month. Will also order C1 and C4 to rule out HAE. Will obtain CRP at that time as well. Other abnormalitis showed elevated glucose, though patient admits to eating right before labs. UA turbid with ketones. Will repeat UA at this time. MCHC mildly low, no other abnormalitiies on CBC. - Continue to carry AIE. - Encouraged to take pictures and journal for triggers. - Recommend avoiding NSAIDS, opioids and alcohol as these can exacerbate symptoms. - Educational handout provided to patient at initial visit. - Follow-up in 1 month for E&M, laboratory review. 03/04/2024 Rash and other nonspecific skin eruption (ICD-10 [...] avoiding hair dye in the interim. - Recommend returning for patch testing at some time. Patch testing information given to patient. 03/04/2024 Anaphylactic reaction due to tree nuts and [...] SPT at initial visit mildly positive to [place] Nut, Cashew Nut, Pistachio, Hazelnut, and Pecan. ImmunoCaps ordered showing IgE elevations to pistachio (0.12) and cashew (0.12). - Encouraged to avoid all tree nuts (except almond and walnut) at this time. - To direct patient to Food Allergy Research & Education (FARE) website for additional resources at follow-up. - Discussed reading food labels, cross-contaminatio n, and use/indications for Epinephrine. - FAP to be formulated at follow-up. - Carry AIE at all times. 03/04/2024 Elevated blood-pressure reading, without diagnosis of hypertension (ICD-10 - R03.0) BP elevated today without symptoms of urgency or emergency. Continue serial checks and follow-up with PCP Plan Of Treatment Medication Medication Name Sig Start Date Stop Date Notes Fexofenadine HCl 180 MG 1 tablet Orally Once a day for 30 days 03/04/2024 Nasal Washes N/A as directed intranasally 03/04/2024 Fluticasone Propionate 50 MCG/ACT 1 spray in each nostril Nasally Twice a day for 30 days Cetirizine HCl 10 MG 1 tablet Orally Onc e a day for 30 days Mupirocin 2 % 1 application Stoker Mechanic ally Twice a day for 5 days 03/04/2024 EPINEPHrine 0.3 MG/0.3ML as directed Inj ection as needed for 30 days AeroChamber MV - as directed for 30 days Albuterol Sulfate HFA 108 (9 0 Base) MCG/ACT 2 puffs as needed Inhalation every 4 hrs for 30 days Treatment Notes Assessment Notes [...] Recommend against frequent use of Aleve decongestant. Prior documentated error. - Will stop Zyrtec and attempt Vero given c/o drowsiness. Will hold Flonase - see below. - Patient is considering SCIT - recommend Zyrtec. Recommend triple premedication if undergoing rapid desensitization during Spring. - AIE to be carried at all [...] SCIT as an adjunctive measure Chronic rhinitis Today's exam is concerning for atrophic rhinitis. -Given exam today, will attempt mupirocin 2% BID x 5 days. Proper demonstration on application given. -Encouraged Nasal rinses and AYR gel after completion of mupirocin to enhance moisturization of nasal passages. -Follow-up in 4 weeks for E&M Cough, unspecified Caryl reports occasional coughing, which [...] 24 hours. She uses tylenol for pain. Using Aleve Cold & Sinus 4 times per week, last used . She admits to 1 glass of wine nightly. No interval episodes of swelling, but does report lip burning and tingline 2 days ago. - Discussed with Dr. Fry, - Laboratory workup notable for positive PRICE 1:40. Discussed with Dr. Fry. Will plan to repeat in 1 month. Will also order C1 and C4 to rule out HAE. Will obtain CRP at that time as well. Other abnormalitis showed elevated glucose, though patient admits to eating right before labs. UA turbid with ketones. Will repeat UA at this time. MCHC mildly low, no other abnormalitiies on CBC. - Continue to carry AIE. - Encouraged to take pictures and journal for triggers. - Recommend avoiding NSAIDS, opioids and alcohol as these can exacerbate symptoms. - Educational handout provided to patient at initial visit. - Follow-up in 1 month for E&M, laboratory review. Rash and other nonspecific skin eruption Intermittent [...] avoiding hair dye in the interim. - Recommend returning for patch testing at some time. Patch testing information given to patient. Anaphylactic reaction due to tree nuts and [...] SPT at initial visit mildly positive to [place] Nut, Cashew Nut, Pistachio, Hazelnut, and Pecan. ImmunoCaps ordered showing IgE elevations to pistachio (0.12) and cashew (0.12). - Encouraged to avoid all tree nuts (except almond and walnut) at this time. - To direct patient to Food Allergy Research & Education (FARE) website for additional resources at follow-up. - Discussed reading food labels, cross-contamination, and use/indications for Epinephrine. - FAP to be formulated at follow-up. - Carry AIE at all times. Elevated blood-pressure read ing, without diagnosis of hypertension BP elevated today without symptoms of urgency or emergency. Continue serial checks and follow-up with PCP Next Appt Details Follow Up: 4 Weeks, Reason: Evaluation and Management,Laboratory Review Progress Notes * TISHAIsidraOB:1990 (33 yo F)Acc No.[id number]:03/04/2024 Progress Notes Patient: Caryl SULLIVAN Provider: SANDRA Das :1990 A ge:33 Y S ex:Female Date:03/04/2024 [facility] Subjective: * Chief Complaints: * A RC - Using Zyrtec nightly with associated drowsiness and Flonase 2x week.Cough triggered by dust or when cleaning with 2 episodes of chest tightness. No interval episodes or albuterol use.Angioedema 3-4 times at age 9 or 10. Now reoccurring over the past two months. No interval episodes. Now carries AIE.Rashes to neck, back and [...] for interval evaluation and management. She is with her mom for today's visit. Caryl reports lifelong seasonal [...] allergens. She was started on Zyrtec, but reports drowsiness. Using Flonase o2x per week. TOday, reporting every AM she has blown her nose with bloody drainage. Denies epistaxis. She is interested in further management. She reports prior bloodwork, confirming pistachio allergy. She has ingested almonds and walnuts regularly. She attempted pistachio in past that resulted in severe abdominal pain within 30 minutes, last time was approximately 2 years ago. Skin testing at initial visit positive to several tree nuts with ImmunoCpaps showing IgE elevations to pistachio (0.12) and cashew (0.12). She continues avoidance and carries AIE. Caryl reports occasional coughing, which she believes [...] reports hair dye every 8-9 weeks. No interval rashes to date. Caryl reports historical angioedema, with upper lip [...] 24 hours. She uses tylenol for pain. Using Aleve-D 4 times per week, last used . She drinks 1 glass of wine nightly. Today, reports episode of burnign 2 days ago, but no associated swelling. Carries AIE. She denies a history of physician-diagnosed allergic [...] tunnel 11/21/2023 * Hospitalization/Major Diagno stic Procedure: N o Hospitalization History. * Family History: F ather: Yes. M other: Yes. P aternal Grand Father: Yes. P aternal Grand Mother: Yes. M aternal Grand Father: Yes. M aternal Grand Mother: Yes. S iblings: Yes. C hildren: Yes. dad- seizures. * Social History: M [...] of exercise do you perform regularly? w natashaing,age-appropriate participation in physical activites How often do [...] heating? Y es Gas or electric? e [place] Fireplace? Y es Used how often? w [...] your bedroom? N o Do you have ylsu-fk-ssof carpeting? N o What is the age [...] Tobacco use: N onsmoker * Medications: T maria antoniagAleve-D Sinus & Cold 120-220 MG Tablet Extended Release 12 Hour 1 tablet as needed Orally every 12 hrs Lo-Zumandimine 3-0.02 MG Tablet Oral Albuterol Sulfate HFA 108 (90 Base) MCG/ACT Aerosol Solution 2 puffs as needed Inhalation every 4 hrs AeroChamber MV - Miscellaneous as directed Any adult spacerEPINEPHrine 0.3 MG/0.3ML Solution Auto-injector as directed Injection as needed Cetirizine HCl 10 MG Tablet 1 tablet Orally Once a day Fluticasone Propionate 50 MCG/ACT Suspension 1 spray in each nostril Nasally Twice a day Medication List reviewed and reconciled with the patientTaking Aleve-D Sinus & Cold 120-220 MG Tablet Extended Release 12 Hour 1 tablet as needed Orally every 12 hrs Taking Lo-Zumandimine 3-0.02 MG Tablet Oral Taking Albuterol Sulfate HFA 108 (90 Base) [...] in each nostril Nasally Twice a day Medication List reviewed and reconciled with the patient * Allergies: N .K.D.A.no[Allergies Verified] Objective: * Vitals: B P:117/84mm Hg, HR:86/min, Pulse Oximetry:99%, ACT:25, Ht: 63 in, Wt: 140.4 lbs, BMI:24.87Index. * Examination: G eneral examination: General appearance: [...] no tongue swelling, and uvula is midline d ried, bloody crusts evident bilaterally concerning for atrophic rhinitis. Oral cavity: n ormal, no lesions. Breasts [...] an adjunctive measure 5. C hronic rhinitis Start Mupirocin Ointment, 2 %, 1 application, Externally, Twice a day, 5 days, 22 Gram, Refills 0.? Notes: Today's exam is concerning for atrophic rhinitis. -Given exam today, will attempt mupirocin 2% BIDx 5 days. Proper demonstration on application given. -Encouraged Nasal rinses and AYR gel aftercompletion of mupirocin to enhance moisturization of nasal passages. -Follow-up in 4 weeks for E&M 6. C ough, unspecified Continue Albuterol Sulfate [...] as needed, 30 days, 1, Refills 0. L AB: C1 INHIBITOR, FUNCTIONAL L AB: C1 INHIBITOR, PROTEIN L AB: URINALYSIS, COMPLETE W/REFLEX TO CULTURE L AB: COMPLEMENT COMPONENT C4C L AB: C-REACTIVE PROTEIN L AB: COMPLEMENT, TOTAL (CH50) Notes: Historical angioedema, with upper lip swelling [...] 24 hours. She uses tylenol for pain. Using Aleve Cold & Sinus 4 times per week, last used . She admits to 1 glass of wine nightly. No interval episodes of swelling, but does report lip burning and tingline 2 days ago. - Discussed with Dr. Fry, - Laboratory workup notable for positive PRICE 1:40. Discussed with Dr. Fry. Will plan to repeat in 1 month. Will also order C1 and C4 to rule out HAE. Will obtain CRP at that time as well. Other abnormalitis showed elevated glucose, though patient admits to eating right before labs. UA turbid with ketones. Will repeat UA at this time. MCHC mildly low, no other abnormalitiies on CBC. - Continue to carry AIE. - Encouraged to take pictures and journal for triggers. - Recommend avoiding NSAIDS, opioids and alcohol as these can exacerbate symptoms. - Educational handout provided to patient at initial visit. - Follow-up in 1 month for E&M, laboratory review. 8. R gabriela and other nonspecific skin [...] avoiding hair dye in the interim. - Recommend returning for patch testing at some time. Patch testing information given to patient. 9. A naphylactic reaction due to tree [...] SPT at initial visit mildly positive to [place] Nut, Cashew Nut, Pistachio, Hazelnut, and Pecan. ImmunoCaps ordered showing IgE elevations to pistachio (0.12) and cashew (0.12). - Encouraged to avoid all tree nuts (except almond and walnut) at this time. - To direct patient to Food Allergy Research &Education (FARE) website for additional resources at follow-up. - Discussed reading foodlabels, cross-contamination, and use/indications for Epinephrine. - FAP to be formulated at follow-up. - Carry AIE at all times. 10. E levated blood-pressure reading, without diagnosis of hypertension Notes: BP elevated today without symptoms of urgency or emergency. Continue serial checks and follow-up with PCP * Procedure Codes: 9 6160 PT-FOCUSED TH RISK [id number] DOC MEDS VERIFIED W/PT OR [id number] Marielle Paez - Incident-to * Preventive Medicine: [...] beasley to general practitioner * Follow Up: 4 Weeks (Reason: Evaluation and Management,Laboratory Review) * Billing Information: * Visit Code: 63363 Office Visit, Est Pt., Level 4. Modifiers: 25 * Procedure Codes: 92673 PT-FOCUSED HLTH RISK ASSMT. G8427 DOC MEDS VERIFIED W/[place]. [address] Marielle Paez - Incident-to. * IAL DELIVERY CLERK Electronically co-signed by Armen Fry MD, FAAAAI on 03/07/2024 at 10:14 PM SPECIAL DELIVERY CLERK Sign off status: Completed true * Provider: SANDRA Das Date: 03/04/2024 Generated for Caterina cardona/Allan/eTmickitting on: 0 06/12/2024 04:06 PM CDT History and Physical Notes * HPI (History of Present Illness) Category Sub-Category Detail Notes Category Not es *Introduction I had the pleasure o f seeing Caryl Cuello, a 33 year-old WF, with a past medical history of ARC, IBS here today for interval evaluation and management. She is with her mom for today's visit. Caryl reports lifelong seasonal [...] allergens. She was started on Zyrtec, but reports drowsiness. Using Flonase o2x per week. TOday, reporting every AM she has blown her nose with bloody drainage. Denies epistaxis. She is interested in further management. She reports prior bloodwork, confirming pistachio allergy. She has ingested almonds and walnuts regularly. She attempted pistachio in past that resulted in severe abdominal pain within 30 minutes, last time was approximately 2 years ago. Skin testing at initial visit positive to several tree nuts with ImmunoCpaps showing IgE elevations to pistachio (0.12) and cashew (0.12). She continues avoidance and carries AIE. Caryl reports occasional coughing, which she believes [...] reports hair dye every 8-9 weeks. No interval rashes to date. Caryl reports historical angioedema, with upper lip [...] 24 hours. She uses tylenol for pain. Using Aleve-D 4 times per week, last used . She drinks 1 glass of wine nightly. Today, reports episode of burnign 2 days ago, but no associated swelling. Carries AIE. She denies a history of physician-diagnosed allergic [...] no tongue swelling, and uvula is midline dried, bloody crusts evident bilaterally concerning for atrophic rhinitis Heart: RRR, S1-S2, no murmu rs, no [...]
--- OUTSIDE RECORDS SUMMARY | 2024-06-12 16:07 | XMS_ITS | Patient Health Record ---
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 Name Role Phone Marielle Paez Unavailable [phone] Allergies No Known Allergies Results Component Value Reference Range Notes PISTACHIO (F203) IGE Reviewed date:03/04/2024 09:43:53 AM Interpretation:Abnormal Performing Lab:[facility], [facility], [address] [place], [address] Alia Sesay MD Notes/Report: NON-FASTING; NON-FASTING; NON-FASTING; NON-FASTING PISTACHIO (F203) IGE 0.12 CLASS 0/1 PECAN NUT (F201) IGE Reviewed date:02/26/2024 07:41:31 AM Interpretation:Normal Performing Lab:[facility], [facility], [address] [place], [address] Alia Sesay MD Notes/Report: NON-FASTING; NON-FASTING; NON-FASTING; NON-FASTING PECAN NUT (F201) IGE <0.10 CLASS 0 INTERPRETATION Specific Level of Allergen IGE Class kU/L Specific IGE Antibody ----- --------- 0 <0.10 Absent/Undetectable 0/1 0.10-0.34 Very Low Level 1 0.35-0.69 Low Level 2 0.70-3.49 Moderate Level 3 3.50-17.4 High Level 4 17.5-49.9 Very High Level 5 50-100 Very High Level 6 >100 Very High Level The clinical relevance of allergen results of 0.10-0.34 kU/L are undetermined and intended for specialist use. Allergens denoted with a include results using one or more analyte specific reagents. In those cases, the test was developed and its analytical performance characteristics have been determined by [facility]. It has not been cleared or approved by the U.S. Food and Drug Administration. This assay has been validated pursuant to the CLIA regulations and is used for clinical purposes. TRYPTASE Reviewed date:02/26/2024 07:40:22 AM Interpretation:Normal Performing Lab:[facility], [address], [place], [address] Armen Shukla M.D.,PhD Notes/Report: NON-FASTING; NON-FASTING; NON-FASTING; NON-FASTING TRYPTASE 5.1 <11.0 mcg/L The Tryptase test, fluorescent enzyme immunoassay (FEIA), measures both the Alpha and Beta forms of Tryptase. Measuring both forms of Tryptase increases sensitivity for the diagnosis of mastocytosis, and mast cell degranulation as a cause of anaphylaxis. CU PANEL Reviewed date:03/04/2024 10:11:30 AM Interpretation:Abnormal Performing Lab:[facility], [address] [place], [address] Alex Luna, Director - [address] [facility] Notes/Report: NON-FASTING; NON-FASTING; NON-FASTING; NON-FASTING BILIRUBIN, DIRECT 0.1 < OR = 0.2 mg/dL GLUCOSE 183 65-99 mg/dL Fasting reference interval For someone without known diabetes, a glucose value >125 mg/dL indicates that they may have diabetes and this should be confirmed with a follow-up test. UREA NITROGEN (BUN) 17 7-25 mg/dL CREATININE 0.74 0.50-0.97 mg/dL EGFR 109 > OR = 60 mL/min/1.73m2 BUN/CREATININE RATIO SEE NOTE: 6-22 (calc) Not Reported: BUN and Creatinine are within reference range. SODIUM 137 135-146 mmol/L POTASSIUM 4.1 3.5-5.3 mmol/L CHLORIDE 103 98-110 mmol/L CARBON DIOXIDE 23 20-32 mmol/L CALCIUM 9.2 8.6-10.2 mg/dL PROTEIN, TOTAL 7.2 6.1-8.1 g/dL ALBUMIN 4.3 3.6-5.1 g/dL GLOBULIN 2.9 1.9-3.7 g/dL (calc) ALBUMIN/GLOBULIN RATIO 1.5 1.0-2.5 (calc) BILIRUBIN, TOTAL 0.4 0.2-1.2 mg/dL ALKALINE PHOSPHATASE 42 31-125 U/L AST 18 10-30 U/L ALT 21 6-29 U/L SED RATE BY MODIFIED WESTERGREN 11 < OR = 20 mm/h COLOR YELLOW YELLOW APPEARANCE TURBID CLEAR SPECIFIC GRAVITY 1.024 1.001-1.035 PH 5.5 5.0-8.0 GLUCOSE NEGATIVE NEGATIVE BILIRUBIN NEGATIVE NEGATIVE KETONES TRACE NEGATIVE OCCULT BLOOD NEGATIVE NEGATIVE PROTEIN NEGATIVE [...] elements. Only those elements seen were reported. WHITE BLOOD CELL COUNT 9.9 3.8-10.8 Thousand/uL RED BLOOD CELL COUNT 3.98 3.80-5.10 Million/uL HEMOGLOBIN 12.4 11.7-15.5 g/dL HEMATOCRIT 39.1 35.0-45.0 % MCV 98.2 80.0-100.0 fL MCH 31.2 27.0-33.0 pg MCHC 31.7 32.0-36.0 g/dL For adults, a slight decrease in the calculated MCHC value (in the range of 30 to 32 g/dL) is most likely not clinically significant; however, it should be interpreted with caution in correlation with other red cell parameters and the patient's clinical condition. RDW 11.7 11.0-15.0 % PLATELET COUNT 319 140-400 Thousand/uL MPV 11.1 7.5-12.5 fL ABSOLUTE NEUTROPHILS 5801 7776-2130 cells/uL ABSOLUTE LYMPHOCYTES 3515 850-3900 cells/uL ABSOLUTE MONOCYTES 396 200-950 cells/uL ABSOLUTE EOSINOPHILS 129 15-500 cells/uL ABSOLUTE BASOPHILS 59 0-200 cells/uL NEUTROPHILS 58.6 LYMPHOCYTES 35.5 MONOCYTES 4.0 EOSINOPHILS 1.3 BASOPHILS 0.6 GLIADIN (DEAMIDATED) AB (IGA) <1.0 Value Interpretation ----- <15.0 Antibody not detected > or = 15.0 Antibody detected GLIADIN (DEAMIDATED) AB (IGG) <1.0 Value Interpretation ----- <15.0 Antibody not detected > or = 15.0 Antibody detected TISSUE TRANSGLUTAMINASE AB, IGG <1.0 Value Interpretation ----- <15.0 Antibody not detected > or = 15.0 Antibody detected TISSUE TRANSGLUTAMINASE AB, IGA <1.0 Value Interpretation ----- <15.0 Antibody not detected > or = 15.0 Antibody detected PRICE SCREEN, IFA POSITIVE NEGATIVE PRICE IFA is a first line screen for detecting the presence of up to approximately 150 autoantibodies in various autoimmune diseases. A positive PRICE IFA result is suggestive of autoimmune disease and reflexes to titer and pattern. Further laboratory testing may be considered if clinically indicated. For additional information, please refer to http://education.[employer]/faq/HJY262 (This link is being provided for informational/ educational purposes only.) IMMUNOGLOBULIN A 174 47-310 mg/dL RHEUMATOID FACTOR <10 <14 IU/mL THYROGLOBULIN ANTIBODIES <1 < or = 1 IU/mL THYROID PEROXIDASE ANTIBODIES 1 <9 IU/mL ENDOMYSIAL ANTIBODY SCR (IGA) W/REFL TO TITER NEGATIVE NEGATIVE IMMUNOGLOBULIN E 71 <OV=954 kU/L TSH W/REFLEX TO FT4 0.91 Reference Range > or = 20 Years 0.40-4.50 Ranges First trimester 0.26-2.66 Second trimester 0.55-2.73 Third trimester 0.43-2.91 ANTINUCLEAR ANTIBODIES TITER AND PATTERN Reviewed date:03/10/2024 01:56:04 PM Interpretation:Abnormal Performing Lab:[place], [facility], [address] [place], [address] Alia Sesay MD Notes/Report: NON-FASTING; NON-FASTING; NON-FASTING; NON-FASTING PRICE TITER 1:40 A low level PRICE titer may be present in pre-clinical autoimmune diseases and normal individuals. Reference Range <1:40 Negative 1:40-1:80 Low Antibody Level >1:80 Elevated Antibody Level PRICE PATTERN Nuclear, Speckled Speckled pattern is associated with mixed connective tissue disease (MCTD), systemic lupus erythematosus (SLE), Sjogren's syndrome, dermatomyositis, and systemic sclerosis/polymyositis overlap. AC-2,4,5,29: Speckled International Consensus on PRICE Patterns (https://doi.org/10.1515 /hfol-5539-2099) INTERPRETATION Reviewed date:02/25/2024 07:43:43 AM Interpretation: Performing Lab:[facility], [address] [place], [address] Alia Sesay MD Notes/Report: NON-FASTING; NON-FASTING; NON-FASTING; NON-FASTING INTERPRETATION Specific Level of Allergen IGE Class kU/L Specific IGE Antibody ----- --------- 0 <0.10 Absent/Undetectable 0/1 0.10-0.34 Very Low Level 1 0.35-0.69 Low Level 2 0.70-3.49 Moderate Level 3 3.50-17.4 High Level 4 17.5-49.9 Very High Level 5 50-100 Very High Level 6 >100 Very High Level The clinical relevance of allergen results of 0.10-0.34 kU/L are undetermined and intended for specialist use. Allergens denoted with a include results using one or more analyte specific reagents. In those cases, the test was developed and its analytical performance characteristics have been determined by [facility]. It has not been cleared or approved by the U.S. Food and Drug Administration. This assay has been validated pursuant to the CLIA regulations and is used for clinical purposes. BRAZIL NUT (f18) IgE with Re flex to Component Reviewed date:02/25/2024 07:43:24 AM Interpretation:Normal Performing Lab:[facility], [address] [facility] [place], [address] Alia Sesay MD Notes/Report: NON-FASTING; NON-FASTING; NON-FASTING; NON-FASTING BRAZIL NUT (F18) IGE <0.10 CLASS 0 HAZELNUT (f17) IgE with Refl ex to Component Panel Reviewed date:02/25/2024 07:43:13 AM Interpretation:Normal Performing Lab:[facility], [address] [facility], [place], [address] Alia Sesay MD Notes/Report: NON-FASTING; NON-FASTING; NON-FASTING; NON-FASTING HAZELNUT (F17) IGE <0.10 CLASS 0 CASHEW NUT (F202) IgE with R eflex to Component Panel Reviewed date:02/25/2024 07:44:01 AM Interpretation:Abnormal Performing Lab:[facility], [address] [place], [address] Alia Sesay MD Notes/Report: NON-FASTING; NON-FASTING; NON-FASTING; NON-FASTING CASHEW NUT (F202) IGE 0.12 CLASS 0/1 CASHEW NUT COMPONENT Reviewed date:02/25/2024 07:43:03 AM Interpretation:Normal Performing Lab:[facility], [address] [facility], [place], [address] Alia Sesay MD Notes/Report: NON-FASTING; NON-FASTING; NON-FASTING; NON-FASTING Price o3 (f443) <0.10 <0.10 kU/L IgE reactivity to whole cashew without reactivity to Price o 3 may be explained by IgE reactivity to other cashew proteins, cross-reactive pollen proteins, or cross-reactive carbohydrates. Test code 79971, CCD and Profilin IgE Cross-Reactivity Panel, may be ordered to detect IgE that cross-reacts with peanut, tree nuts, and other plant allergens. Additional information can be found at http://www.[employer].BizSlate Spirometry Reviewed date:01/29/2024 02:51:42 PM Interpretation:Normal Performing Lab: Notes/Report: Normal SpiroPreBronchodilator_FVC 4.05 SpiroPostBronchodilator_FE F25_75 0 SpiroPreBronchodilator_FEF 25_75 3.11 SpiroPreBronchodilator_FEV 1 3.25 SpiroPrecentPredictionPost _FEF25_75 0 SpiroPrecentPredictionPost _FEV1 0 SpiroPrecentPredictionPost _FEV1_OVER_FVC 0 SpiroPrecentPredictionPost _FVC 0 SpiroPrecentPredictionPre_ GYE25_21 86.9 SpiroPrecentPredictionPre_ FEV1 107.3 SpiroPrecentPredictionPre_ FEV1_OVER_FVC 93.6 SpiroPrecentPredictionPre_ FVC 114.7 SpiroPredicted_FEF25_75 3.58 SpiroPreBronchodilator_FEV 1_OVER_FVC 80.21 SpiroPreBronchodilator_PEF 7.77 SpiroPostBronchodilator_FV C 0 SpiroPostBronchodilator_FE V1 0 SpiroPostBronchodilator_FE V1_OVER_FVC 0 SpiroPostBronchodilator_PE F 0 SpiroPredicted_FVC 3.53 SpiroPredicted_FEV1 3.03 SpiroPredicted_FEV1_OVER_F VC 85.69 SpiroPredicted_PEF 6.26 URINALYSIS, COMPLETE W/REFLE X TO CULTURE Reviewed date:04/13/2024 09:17:46 AM Interpretation:Normal Performing Lab:, [facility], [address] , [place], [address] [facility] Notes/Report: NON-FASTING; NON-FASTING; NON-FASTING COLOR YELLOW YELLOW [...] date:04/13/2024 09:18:39 AM Interpretation:Normal Performing Lab:[facility], [address] [place], [address] Alia Sesay MD Notes/Report: NON-FASTING; NON-FASTING; NON-FASTING COMPLEMENT COMPONENT C4C 25 15-57 mg/dL REFLEXIVE URINE CULTURE Reviewed date:04/13/2024 09:17:33 AM Interpretation:Normal Performing Lab:[facility], [address] [place], [address] [facility] Notes/Report: NON-FASTING; NON-FASTING; NON-FASTING REFLEXIVE URINE CULTURE NO C ULTURE INDICATED COMPLEMENT, TOTAL (CH50) Reviewed date:04/27/2024 09:48:51 PM Interpretation:Abnormal Performing Lab:[facility], [address] [place], [address] Alia Sesay MD Notes/Report: NON-FASTING; NON-FASTING; NON-FASTING COMPLEMENT, TOTAL (CH50) >60 31-60 U/mL C-REACTIVE PROTEIN Reviewed date:04/13/2024 09:18:11 AM Interpretation:Normal Performing Lab:[facility], [address] [place], [address] [facility] Notes/Report: NON-FASTING; NON-FASTING; NON-FASTING C-REACTIVE PROTEIN <5.0 <8.0 mg/L C1 INHIBITOR, PROTEIN Reviewed date:04/13/2024 09:19:22 AM Interpretation:Normal Performing Lab:[facility], [address] [facility] , [place], [address] Armen Shukla M.D.,PhD Notes/Report: NON-FASTING; NON-FASTING; NON-FASTING C1 ESTERASE INHIBITOR, PROTEIN 33 21-39 mg/dL A normal C1 esterase inhibitor protein level does not rule out the possibility of a functional C1 esterase inhibitor deficiency. Consider further testing of C1 esterase inhibitor functional activity, if clinically indicated. C1 INHIBITOR, FUNCTIONAL Reviewed date:04/13/2024 09:19:00 AM Interpretation:Normal Performing Lab:[facility], [address], [place], [address] Armen Shukla M.D.,PhD Notes/Report: NON-FASTING; NON-FASTING; NON-FASTING C1 ESTERASE INHIBITOR, FUNCTIONAL >100 >=68 % Reference Range: > or = 68%: Normal 41-67%: Equivocal < or = 40%: Abnormal Less than 40% of the reference functional activity indicates a likely diagnosis of hereditary angioedema or acquired C1 Inhibitor deficiency. For additional information, please refer to: [email or web address]/faq/FAQ54 (This link is being provided for informational/ educational purposes only.) PRICE IFA, W/REFL TO SUE/STEPHAN GUERRERO/HERNAN Reviewed date:04/13/2024 09:17:17 AM Interpretation:Normal Performing Lab:[place], [facility], [address] [place], [address] Alia Sesay MD Notes/Report: NON-FASTING; NON-FASTING; NON-FASTING [...] AC-0: Negative International Consensus on PRICE Patterns (https://doi.org/10.1515 /cwfx-6076-0629) For additional information, please refer to http://Clearleap.[employer]/faq/YCU384 (This link is being provided for informational/ educational purposes only.) ANTI-IGE Reviewed date:02/26/2024 07:40:58 AM Interpretation:Normal Performing Lab:, [facility],, [address] [place], [address] Dixie Pantoja MD,PhD,AMANDA Notes/Report: NON-FASTING; NON-FASTING; NON-FASTING; NON-FASTING IGE ANTIBODY (ANTI IGE IGG) 24 <168 ng/mL This test was developed and its analytical performance characteristics have been determined by [facility]. It has not been cleared or approved by FDA. This assay has been validated pursuant to the CLIA regulations and is used for clinical purposes. CHRONIC URTICARIA Reviewed date:02/26/2024 07:40:44 AM Interpretation:Normal Performing Lab:[facility], [facility],, [address] [place], [address] Dixie Pantoja MD,PhD,AMANDA Notes/Report: NON-FASTING; NON-FASTING; NON-FASTING; NON-FASTING HISTAMINE RELEASE (CHRONIC URTICARIA) <16 <16 % This test was developed and its analytical performance characteristics have been determined by [facility]. It has not been cleared or approved by FDA. This assay has been validated pursuant to the CLIA regulations and is used for clinical purposes. THYROID PEROXIDASE ANTIBODIES 1 <9 IU/mL THYROGLOBULIN ANTIBODIES <1 < OR = 1 IU/mL TSH 0.95 0.40-4.50 mIU/L Female Reference Ranges for TSH: Premature Infants, (28-36) weeks 1st week of life 0.20-27.90 mIU/L Term infants, (>37 weeks) Serum or Cord Blood 1.00-39.00 mIU/L 1-2 days 3.20-34.60 mIU/L 3-4 days 0.70-15.40 mIU/L 5 days-4 weeks 1.70-9.10 mIU/L 1-11 months 0.80-8.20 mIU/L 1-19 years 0.50-4.30 mIU/L > or = 20 years 0.40-4.50 mIU/L TSH levels decline rapidly during the first week of life in most children, but may remain transiently elevated in a few individuals despite normal free T4 levels. For proper interpretation of an abnormal TSH from a thyroid screen, a [place] T4 [place]ialysis ([place] [address]) or T4, Total (Thyroxine) (TC [address]) should be considered. Ranges First Trimester 0.26-2.66 mIU/L Second Trimester 0.55-2.73 mIU/L Third Trimester 0.43-2.91 mIU/L For additional information, please refer to http://education.[employer]/faq/QQJ272 (This link is being provided for informational/educationa l purposes only.) Reason For Referral No Information Medications Medication SIG (Take, Route, Frequency, Duration) Notes Start Date End Date Status Albuterol Sulfate HFA 108 (90 Base) MCG/ACT [...] ection as needed for 30 days Active Nasal Washes N/A as directed intranasally Active Cetirizine HCl 10 MG 1 tablet Orally Onc e a day for 30 days Active Fluticasone Propionate 50 MCG/ACT 1 spray in each nostril Nasally Twice a day for 30 days Active Mupirocin 2 % 1 application Decorator Mannequin ally Twice a day for 5 days Active Fexofenadine HCl 180 MG 1 tablet Orally Once a day for 30 days Active Social History Tobacco Use: Social History Observation Description Date Details (start date - stop date) Never Smoker NA - NA Tobacco Control (Standard) Question Answer Notes Tobacco use: Nonsmoker Problems Problem Type SNOMED Code ICD Code Onset Dates Problem Status W/U Status Risk Notes Problem Chronic allergic conjunctivitis (82290143) Other chronic allergic conjunctivitis (H10.45) Active confirmed Problem Allergic rhinitis caused by pollen (disorder) (44802724) Allergic rhinitis due to pollen (J30.1) Active confirmed Problem Allergic rhinitis caused by animal hair and dander (950631764088036) Allergic rhinitis due to animal (cat) (dog) hair and dander (J30.81) Active confirmed Problem Allergic rhinitis (87377600) Other allergic rhinitis (J30.89) Active confirmed Problem Chronic rhinitis (J31.0) Active confirmed Problem Allergic rhinitis caused by animal hair and dander (071189567635523) Allergic rhinitis due to animal (cat) (dog) hair and dander (J30.81) Active confirmed Vital Signs Oximetry 100 % 04/28/2024 Blood pressure diastolic 85 mm Hg 04/28/2024 Height 63 in 04/28/2024 Blood pressure systolic 131 mm Hg 04/28/2024 Weight 139.6 lbs 04/28/2024 BMI 24.73 kg/m2 04/28/2024 Encounters Encounter Location Date Provider Diagnosis [facility] [address] [place] [phone] 01/29/2024 Marielle Paez Allergic rhinitis du e to pollen J30.1 ; Allergic rhinitis due to animal (cat) (dog) hair and dander J30.81 ; Other allergic rhinitis J30.89 ; Other chronic allergic conjunctivitis H10.45 ; Cough, unspecified R05.9 ; Angioneurotic edema, initial encounter T78.3XXA ; Rash and other nonspecific skin eruption R21 ; Anaphylactic reaction due to tree nuts and seeds, initial encounter T78.05XA and Elevated blood-pressure reading, without diagnosis of hypertension R03.0 [facility] [address] [place] [phone] 03/04/2024 Marielle Paez Allergic rhinitis du e [...] blood-pressure reading, without diagnosis of hypertension R03.0 [facility] [address] [place] [address] 04/28/2024 Marielle Paez Allergic rhinitis du e [...] blood-pressure reading, without diagnosis of hypertension R03.0 [facility] [address] [facility] [address] [place] [address] 03/04/2024 Marielle Lagunascaitlin Assessments Encounter Date Diagnosis (ICD Code) Assessment Notes Treatment Notes Treatment Clinical Notes Section Notes 01/29/2024 Allergic rhinitis due to pollen (ICD-10 - J30.1) Given the history and symptoms, skin testing was performed to common aeroallergens to determine atopic status. Caryl clearly suffers from atopic disease based [...] medication regimen, improve allergy avoidance measures. - Start medications as listed above. Recommend frequent use of Aleve decongestant - Patient is considering SCIT - recommend Zyrtec. Consider triple premedication if cluster during Spring. - AIE to be carried at all times - see below. - Follow-up in 1 month for E&M 01/29/2024 Allergic rhinitis due to animal (cat) (dog) hair and dander (ICD-10 - J30.81) Follow allergen avoidance, meds and consider SCIT as an adjunctive treatment to current regimen 03/04/2024 Allergic rhinitis due to pollen (ICD-10 [...] an adjunctive treatment to current regimen 04/28/2024 Allergic rhinitis due to pollen (ICD-10 [...] as an adjunctive treatment to current regimen 01/29/2024 Other allergic rhinitis (ICD-10 - J30.89) Follow allergen avoidance, meds and consider SCIT as an adjunctive treatment to current regimen 01/29/2024 Other chronic allergic conjunctivitis (ICD-10 - H10.45) Given ocular signs and symptoms I encouraged allergy avoidance measures and meds as above. If symptoms persist, consider adding additional medications including intraocular antihistamine/mast cell stabilizer, PRN and consider SCIT as an adjunctive measure 03/04/2024 Other chronic allergic conjunctivitis (ICD-10 - H10.45) Given ocular signs and symptoms I encouraged allergy avoidance measures and meds as above. If symptoms persist, consider adding additional medications including intraocular antihistamine/mast cell stabilizer, PRN and consider SCIT as an adjunctive measure 04/28/2024 Other chronic allergic conjunctivitis (ICD-10 - [...] nasal sprays for any evidence of epistaxis. 03/04/2024 Chronic rhinitis (ICD-10 - J31.0) Today's exam is concerning for atrophic rhinitis. -Given exam today, will attempt mupirocin 2% BID x 5 days. Proper demonstration on application given. -Encouraged Nasal rinses and AYR gel after completion of mupirocin to enhance moisturization of nasal passages. -Follow-up in 4 weeks for E&M 01/29/2024 Cough, unspecified (ICD-10 - R05.9) Caryl reports [...] denies OCS use for lower airways. ACT 23 today. - Given history and symptoms, spirometry was done today and showed supernormal FVC, normal FEV1, FEV%. FVL shows variable inspiratory blunting, otherwise normal. Normal lung age. - Will order albuterol to have on hand. Proper demosntration given. Encouraged to use MCKENNA PRN every 4-6 hours for cough. - Consider step-up to ICS versus ICS/LABA for MCKENNA use more than 2x per week. - Treat atopy as stated above. - Consider BD challege for persistent or worsening symptoms. - Follow-up in 1 month 01/29/2024 Angioneurotic edema, initial encounter (ICD-10 - T78.3XXA) [...] admits to 1 glass of wine nightly. - Discussed with Dr. Fry, will obtain CU workup as this time. Labs ordered and given to patient. - Given ongoing swelling, AIE ordered and encouraged to carry at all times. Proper demonstration given. - Encouraged to take pictures and journal for triggers. - Recommend avoiding NSAIDS, opioids and alcohol as these can exacerbate symptoms. - Educational handout provided to patient. - Follow-up in 1 month for E&M, laboratory review. 03/04/2024 Cough, unspecified (ICD-10 - R05.9) Caryl [...] challege for persistent or worsening symptoms. 04/28/2024 Cough, unspecified (ICD-10 - R05.9) Caryl [...] - Follow-up in 3-4 months for E&M 03/04/2024 Angioneurotic edema, initial encounter (ICD-10 - [...] for positive PRICE 1:40. Discussed with Dr. Win. Will plan to repeat in 1 month. [...] in 1 month for E&M, laboratory review. 01/29/2024 Rash and other nonspecific skin eruption (ICD-10 [...] dye every 8-9 weeks. No pictures available. - History is concerning for contact dermatitis [...] the interim. - Recommend returning for patch testing, which we discussed today. Patch testing information given to patient. - Follow-up in 1 month for E&M 01/29/2024 Anaphylactic reaction due to tree nuts and seeds, initial encounter (ICD-10 - T78.05XA) She reports prior bloodwork, confirming pistachio allergy. She has ingested almonds and walnuts regularly. She attempted pistachio in past that resulted in severe abdominal pain within 30 minutes, last time was approximately 2 years ago. She has avoided since. She has ingested almonds and walnuts without issue. - SPT today mildly positive to [place] Nut, Cashew Nut, Pistachio, Hazelnut, and Pecan. - Encouraged to avoid all tree nuts (except almond and walnut) at this time. - To direct patient to Food Allergy Research & Education (FARE) website for additional resources at follow-up. - Discussed reading food labels, cross-contaminatio n, and use/indications for Epinephrine. Training with AIE performed in office with mom and patient. - FAP to be formulated at follow-up. - Carry AIE at all times. - Plan on checking ImmunoCaps and component testing. - Return in 1 month for follow-up 03/04/2024 Rash and other nonspecific skin eruption [...] time. Patch testing information given to patient. 04/28/2024 Rash and other nonspecific skin eruption [...] SPT at initial visit mildly positive to [place] Nut, Cashew Nut, Pistachio, Hazelnut, and Pecan. [...] Continue to carry AIE at all times. 03/04/2024 Anaphylactic reaction due to tree nuts [...] SPT at initial visit mildly positive to [place] Nut, Cashew Nut, Pistachio, Hazelnut, and Pecan. [...] follow-up. - Carry AIE at all times. 01/29/2024 Elevated blood-pressure reading, without diagnosis of hypertension (ICD-10 - R03.0) BP elevated today without symptoms of urgency or emergency. Continue serial checks and follow-up with PCP 03/04/2024 Elevated blood-pressure reading, without diagnosis of hypertension (ICD-10 - R03.0) BP elevated today without symptoms of urgency or emergency. Continue serial checks and follow-up with PCP 04/28/2024 Elevated blood-pressure reading, without diagnosis of hypertension (ICD-10 - R03.0) BP elevated today without symptoms of urgency or emergency. Continue serial checks and follow-up with PCP Plan Of Treatment No Information Insurance Providers Payer Name Payer Address Payer Phone Subscriber Number Group Number Insured Name Patient Relationship to Insured Coverage Start Date Coverage End Date [facility] [address] [address] [place] [phone] [id number] Cuate Caryl Self - patient is the insured 5 Medical (General) History Medical History History ICD Code Irritable bowel syndrome with diarrhea K 58.0 Allergic rhinitis due to pollen J30.1 Allergic rhinitis due to animal (cat) (d og) hair and dander J30.81 Other allergic rhinitis J30.89 Angioneurotic edema, initial encounter T 78.3XXA Surgical History Surgery Date(Month/Year) Cubital tunnel 11/21/2023
== END 2024-06-12 09:43 | disposition home or self-care (01) ==
PROVIDERS: Emergency Provider Nurse Practitioner Family
DX: J20.9 Acute bronchitis, unspecified (principal)
CPT/HCPCS: 99203; G0463